=== PATIENT | male | born 1970 | race Caucasian/White ===

== ENCOUNTER → 2017-12-12 09:17 | Outpatient (CLI) | payer BC, SELFPAY ==
--- NOTE | 2017-12-12 09:21 | RAD_ITS ---
STUDY: X-RAY CHEST REASON FOR EXAM: Male, 47 years old. Cough. TECHNIQUE: Frontal and lateral views of the chest. COMPARISON: None. FINDINGS: The lungs are clear and expanded. There is no demonstrated pleural abnormality. Normal size heart. Normal mediastinum and wali. Normal visualized pulmonary arteries. Normal visualized aortic arch and descending thoracic aorta. Normal visualized thoracic spine. Normal visualized ribs, clavicles, and shoulders. There is no demonstrated abnormality of the visualized soft tissue structures of the upper abdomen. RAD/Chest PA and Lateral IMPRESSION: Normal x-ray examination of the chest. Electronically Signed: Nicolas Chen MD at 16:49 EDT , Service support ,
== END ==
PROVIDERS: Family Provider Family Medicine; PCP Family Medicine; Visit Provider Internal Medicine Critical Care Medicine
DX: J45.21 Mild intermittent asthma with (acute) exacerbation (principal)
CPT/HCPCS: 71046

== ENCOUNTER → 2018-01-22 13:21 | Outpatient (CLI) | payer BC, SELFPAY ==
--- NOTE | 2018-01-23 08:40 | PFT ---
INTRODUCTION: The patient is a 47-year-old male currently under the care of Dr. Blair that presents for pulmonary function testing secondary to a diagnosis of asthma. Respiratory therapy reports good patient effort. Bronchodilators were used during testing. INTERPRETATION: Forced expiration spirometry demonstrates the presence of a mild large airways obstructive ventilatory impairment. There was a near significant response to aerosolized bronchodilators. Spirograms are of good quality do not plateau indicating slow emptying of the lungs. Body plethysmography was performed and reveals lung volumes to be within normal limits. Diffusing capacity by single breath CO is also within normal limits. IMPRESSION: These pulmonary function studies demonstrate the presence of a mild large airways obstructive ventilatory defect. Although the bronchodilator response was not considered significant by ATS criteria, the airway obstruction did reverse with bronchodilator administration. There are no previous pulmonary function studies available for comparison.
== END ==
PROVIDERS: Family Provider Family Medicine; PCP Family Medicine; Visit Provider Internal Medicine Critical Care Medicine
DX: J45.21 Mild intermittent asthma with (acute) exacerbation (principal)
CPT/HCPCS: 94060; 94726; 94729

== ENCOUNTER → 2018-04-22 14:23 | Outpatient (CLI) | payer BC, SELFPAY ==
[2018-04-22 15:59] LABS: Absolute Lymphocyte Count 2.41 X10^3/ul (0.83-4.51); Absolute Neutrophil Count 5.6 X10^3/uL (2.0-7.7); Basophil# 0.03 X10^3/uL; Basophil% 0.3 % (0-1); Eosinophil# 0.07 X10^3/uL; Eosinophils% 0.8 % (0-5); Hematocrit 42.4 % (40-54); Hemoglobin 14.2 g/dl (13.0-16.5); Lymphocyte # 2.41 X10^3/ul (4.0); Mean Corp Hgb Conc 33.5 g/gl (32-36); Mean Corpuscular Hgb 31.1 pg (27.0-32.0); Mean Corpuscular Volume 92.8 fL (80-94); Mean Platelet Vol. 9.2 fl (6.2-12.0); Monocyte# 0.78 X10^3/uL; Monocyte% 8.7 % (0-10); Neutrophil # 5.62 X10^3/uL (2.7-7.7); POSITIVE COUNT NO; POSITIVE DIFFERENTIAL NO; POSITIVE MORPHOLOGY NO; Platelet Count 275 K/mm3 (150-450); RBC Distribution Width CV 12.7 % (11.6-14.6); RBC Distribution Width SD 42.3 fl (35.1-43.9); Red Blood Count 4.57 M/mm3 (4.6-6.2); White Blood Count 8.9 K/mm3 (4.4-11.0)
[2018-04-22 16:17] LABS: ALB/GLOB Ratio 1.2 RATIO (0.9-2.4); AST(SGOT) 34 U/L (15-37); Alanine Aminotransfer ALT/SGPT 32 U/L (16-61); Alkaline Phosphatase 57 U/L (45-117); Anion Gap 8 (5-15); BUN 14 mg/dL (7-18); Chloride 104 mmol/L (98-107); Cholesterol 179 mg/dL (200); Creatinine, Serum 1.17 mg/dL (0.70-1.30); EST Glomerular Filtration Rate 71 mL/min (>60); Est Glom Filt Rate - Afr Amer 86 mL/min (>60); Globulin 3.4 g/dL (2.2-4.2); Glucose 88 mg/dL (74-106); High Density Lipoprotein 34 mg/dL; Potassium 3.8 mmol/L (3.5-5.1); Protein, Total 7.4 g/dL (6.4-8.2); Sodium Level 140 mmol/L (136-145); Triglycerides 132 mg/dL; Very Low Density Lipoprotein 26 mg/dL (5-40)
== END ==
PROVIDERS: Family Provider Family Medicine; PCP Family Medicine; Visit Provider Family Medicine
DX: Z00.01 Encounter for general adult medical examination with abnormal findings (principal); I10 Essential (primary) hypertension; E78.5 Hyperlipidemia, unspecified
CPT/HCPCS: 36415; 80053; 80061; 85025

== ENCOUNTER → 2018-05-08 11:21 | Outpatient (CLI) | payer BC, SELFPAY | PROVIDERS: Family Provider Family Medicine; PCP Family Medicine; Visit Provider Nurse Practitioner Acute Care | DX: J20.9 Acute bronchitis, unspecified (principal) | CPT/HCPCS: 71046; 87070; 87077; 87205 ==

== ENCOUNTER → 2019-04-21 06:00 | Outpatient (CLI) | payer BC, SELFPAY ==
[2019-04-12 14:11] VITALS: BMI 28.6
[2019-04-21 07:27] LABS: Absolute Lymphocyte Count 2.37 X10^3/uL (0.83-4.51); Absolute Neutrophil Count 3.9 X10^3/uL (2.0-7.7); Basophil# 0.05 X10^3/uL; Basophil% 0.7 % (0-1); Eosinophil# 0.08 X10^3/uL; Eosinophils% 1.1 % (0-5); Hematocrit 44.3 % (40-54); Hemoglobin 14.6 g/dL (13.0-16.5); Lymphocyte # 2.37 X10^3/ul (4.0); Lymphocyte % 32.6 % (19-41); Mean Corpuscular Hgb 30.9 pg (27.0-32.0); Mean Corpuscular Volume 93.9 fL (80-94); Mean Platelet Vol. 8.8 fl (6.2-12.0); Monocyte# 0.88 X10^3/uL; Monocyte% 12.1 % (0-10); NRBC Flagged by Analyzer 0 % (0-5); Neutrophil # 3.86 X10^3/uL (2.7-7.7); Neutrophil % 53.2 % (47-70); Platelet Count 236 K/mm3 (150-450); RBC Distribution Width CV 12.6 % (11.6-14.6); RBC Distribution Width SD 43.8 fl (35.1-43.9); Red Blood Count 4.72 M/mm3 (4.6-6.2); White Blood Count 7.3 K/mm3 (4.4-11.0)
[2019-04-21 08:01] LABS: ALB/GLOB Ratio 1.1 RATIO (0.9-2.4); AST(SGOT) 27 U/L (15-37); Alanine Aminotransfer ALT/SGPT 30 U/L (16-61); Albumin, Serum 3.6 g/dL (3.2-5.0); Alkaline Phosphatase 66 U/L (45-117); Anion Gap 7 (5-15); BUN 14 mg/dL (7-18); BUN/Creat Ratio 11.5 RATIO (10-20); Calcium,Total 8.7 mg/dL (8.5-10.1); Chloride 106 mmol/L (98-107); Cholesterol 183 mg/dL (200); Creatinine, Serum 1.22 mg/dL (0.70-1.30); EST Glomerular Filtration Rate 68 mL/min (>60); Est Glom Filt Rate - Afr Amer 82 mL/min (>60); Globulin 3.4 g/dL (2.2-4.2); Glucose 94 mg/dL (74-106); High Density Lipoprotein 31 mg/dL; Sodium Level 139 mmol/L (136-145); Triglycerides 287 mg/dL; Very Low Density Lipoprotein 57 mg/dL (5-40)
== END ==
PROVIDERS: Family Provider Family Medicine; PCP Family Medicine; Referring Provider Family Medicine; Visit Provider Family Medicine
DX: Z00.01 Encounter for general adult medical examination with abnormal findings (principal); I10 Essential (primary) hypertension; E78.5 Hyperlipidemia, unspecified
CPT/HCPCS: 36415; 80053; 80061; 85025

== ENCOUNTER → 2019-05-12 13:03 | Outpatient (CLI) | payer BC, SELFPAY ==
[2019-04-12 14:11] VITALS: BMI 28.6
== END ==
PROVIDERS: Family Provider Family Medicine; PCP Family Medicine; Referring Provider Family Medicine; Visit Provider Family Medicine
DX: G47.19 Other hypersomnia (principal)
CPT/HCPCS: 95806

== ENCOUNTER 2020-01-26 15:16 | Emergency (ER) | payer BC, SELFPAY ==
[2019-10-04 14:13] VITALS: BMI 28.6
[2020-01-26 15:17] VITALS: BP 182/94; PULSE 84; RESP 16; TEMP 36.6; O2SAT 99; BMI 29.1
--- NOTE | 2020-01-26 15:27 | VDLE_ITS ---
Reason For Study: SWELLING Procedure LEFT Exam performed portable in ED. GSV is normal. A preliminary report was called and/or faxed CFV is compressible, spontaneous, phasic, to ED. competent, and demonstrates normal augmentation. FV is compressible, spontaneous, phasic, competent and demonstrates normal augmentation. POP V is compressible, spontaneous, phasic, competent and demonstrates normal augmentation. T/P Trunk is compressible. PTV is compressible. LT PerV is compressible. Interpretation Summary Deep veins of the left lower extremity are patent and compressible segmentally. There is no evidence of left lower extremity deep vein thrombosis. Valvular competence appears intact within the proximal deep venous system on the left . The left great saphenous vein appears patent and compressible segmentally. Ordering Physician: Sanjay Potts Referring Physician: MOLLY MCCULLOUGH Performed By: Rivka Landis, TARA, RVT
--- NOTE | 2020-01-26 15:28 | ED.DCSUM_ITS ---
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 He had no swelling or significant pain for about 2 weeks. Then, he started having swelling in the lower leg, and the popliteal fossa. Now that has been going on for about 2 weeks. He is concerned he may have a blood clot. He has never had one before, he has not been immobilized, he has been getting around and walking without any difficulty, he states bending his knee gives him discomfort in the popliteal fossa because of the amount of swelling there, but otherwise he has been doing well. Denies any symptoms of a PE. No chest pain, shortness of breath, lightheadedness, palpitations, and none of this with exertion. He states he bicycles avidly, and he has been doing strong workouts without any difficulty. - Past Medical History (1) Hypertension Status: Chronic (2) Hyperlipidemia Status: Chronic (3) Mild intermittent asthma Status: Chronic Past Medical History - Allergies and Home Meds Allergies/Adverse Reactions: Allergies No Known Allergies Allergy (Verified 01/26/20 15:19) Primary Care Physician: Adrian Dobbs DO [Primary Care Provider] - Lives: With Family Smoking Status: Never smoker Review of Systems General: Denies: Chills, Fever, Sweats Eyes: Denies: Visual changes - bilaterally, Diplopia ENT: Denies: Rhinorrhea, Sore throat Cardiovascular: Denies: Chest pain, Palpitations Respiratory: Denies: Dyspnea, Cough, Dyspnea on exertion Gastrointestinal: Denies: Abdominal pain, Nausea, Vomiting, Diarrhea, Melena, Hematochezia Genitourinary: Denies: Dysuria, Hematuria, Frequency Musculoskeletal: Reports: Swelling, Extremity Pain - tight, mostly popliteal fossa. Denies: Back pain Skin: Denies: Rash, Wounds Neurological: Denies: Headache, Weakness, Numbness Physical Exam Vital Signs/Narrative: Vital Signs Temp Pulse Resp BP Pulse Ox 01/26/20 15:17 97.8 F 84 16 182/94 H 99 Inital Vital Signs reviewed: Yes - Extremity Exam Left Knee: Edema - Trace-1+ pretibial left lower extremity only, to the knee. No pitting edema in the thigh., Limited ROM - Only at extremes of flexion., - - Popliteal fossa is swollen, it is not tender, it is soft to palpation, there is no skin abnormalities or cellulitis or nidus for infection. No knee effusion anteriorly. All ligaments stable and intact with no pain on stressing. General: Well nourished, Well developed, - - nad Head: Normocephalic, Atraumatic Eyes: Perrl, EOMI Skin: Normal color, No rash, No Trauma Neurological: Alert, Oriented x3, Cranial nerves II-XII grossly intact, Normal Strength, Normal Sensation, Normal Gait Psychological: Normal affect, Normal Mood Diagnostic/Tx/Re-eval - Medical Decision Making Vascular venous Doppler was obtained in the emergency department, it shows no sign of venous thrombolic disease. They did not note Junior's cyst either. Hopefully this was just an unusual presentation of a traumatic injury with residual draining subcutaneous blood as a result. This should all resolve with time if that is the case. There is not a lot of bruising to suggest that is obviously the cause. He does not require any anticoagulants or surgical evalu ation at this time so I think it is appropriate that he follow-up with his primary care doctor for now. He is comfortable with that plan. ED Disposition - Plan for ED Patient: Disposition: Home or Assisted Living Diagnosis: Edema of left lower extremity Instructions: ED Peripheral Edema, Unilateral Referrals: Adiran Dobbs DO [Primary Care Provider] - 1 Week if not improving
[2020-01-26 17:35] VITALS: BP 167/81; PULSE 81; RESP 14; O2SAT 97
== END 2020-01-26 17:36 | disposition home or self-care (01) ==
PROVIDERS: Emergency Provider Emergency Medicine; PCP Family Medicine
DX: R60.0 Localized edema (principal); I10 Essential (primary) hypertension; E78.5 Hyperlipidemia, unspecified; J45.20 Mild intermittent asthma, uncomplicated; Z79.51 Long term (current) use of inhaled steroids; Z79.899 Other long term (current) drug therapy
CPT/HCPCS: 93971; 99282

== ENCOUNTER → 2020-04-24 15:47 | Outpatient (CLI) | payer BC, SELFPAY ==
[2020-03-29 13:51] VITALS: BMI 29.1
[2020-04-24 17:07] LABS: Absolute Lymphocyte Count 2.83 X10^3/uL (0.83-4.51); Absolute Neutrophil Count 5.4 X10^3/uL (2.0-7.7); Basophil# 0.03 X10^3/uL; Basophil% 0.3 % (0-1); Eosinophil# 0.06 X10^3/uL; Eosinophils% 0.6 % (0-5); Hematocrit 44.5 % (40-54); Hemoglobin 14.6 g/dL (13.0-16.5); Lymphocyte # 2.83 X10^3/ul (4.0); Lymphocyte % 30.5 % (19-41); Mean Corp Hgb Conc 32.8 g/dL (32-36); Mean Corpuscular Hgb 30.2 pg (27.0-32.0); Mean Corpuscular Volume 92.1 fL (80-94); Mean Platelet Vol. 8.7 fl (6.2-12.0); Monocyte# 0.96 X10^3/uL; Monocyte% 10.3 % (0-10); NRBC Flagged by Analyzer 0 % (0-5); Neutrophil # 5.37 X10^3/uL (2.7-7.7); Neutrophil % 57.9 % (47-70); Platelet Count 290 K/mm3 (150-450); RBC Distribution Width CV 13.1 % (11.6-14.6); RBC Distribution Width SD 43.7 fl (35.1-43.9); Red Blood Count 4.83 M/mm3 (4.6-6.2); White Blood Count 9.3 K/mm3 (4.4-11.0)
[2020-04-24 17:20] LABS: ALB/GLOB Ratio 1.2 RATIO (0.9-2.4); AST(SGOT) 25 U/L (15-37); Alanine Aminotransfer ALT/SGPT 39 U/L (16-61); Albumin, Serum 4.2 g/dL (3.2-5.0); Alkaline Phosphatase 69 U/L (45-117); Anion Gap 7 (5-15); BUN 16 mg/dL (7-18); BUN/Creat Ratio 12.2 RATIO (10-20); Chloride 102 mmol/L (98-107); Cholesterol 220 mg/dL (200); Creatinine, Serum 1.31 mg/dL (0.70-1.30); EST Glomerular Filtration Rate 62 mL/min (>60); Est Glom Filt Rate - Afr Amer 75 mL/min (>60); Globulin 3.6 g/dL (2.2-4.2); Glucose 83 mg/dL (74-106); High Density Lipoprotein 32 mg/dL; Potassium 3.9 mmol/L (3.5-5.1); Protein, Total 7.8 g/dL (6.4-8.2); Sodium Level 137 mmol/L (136-145); Triglycerides 288 mg/dL; Very Low Density Lipoprotein 58 mg/dL (5-40)
== END ==
PROVIDERS: PCP Family Medicine; Visit Provider Family Medicine
DX: Z00.00 Encounter for general adult medical examination without abnormal findings (principal)
CPT/HCPCS: 36415; 80053; 80061; 85025

== ENCOUNTER → 2022-08-23 | Outpatient (CLI) | payer OTHER, SELFPAY ==
[2022-08-23 18:19] LABS: ALB/GLOB Ratio 1.2 RATIO (0.9-2.4); AST(SGOT) 19 U/L (15-37); Alanine Aminotransfer ALT/SGPT 30 U/L (16-61); Albumin, Serum 4.2 g/dL (3.2-5.0); Alkaline Phosphatase 68 U/L (45-117); Anion Gap 7 (5-15); BUN 17 mg/dL (7-18); BUN/Creat Ratio 13.9 RATIO (10-20); Calcium,Total 9.1 mg/dL (8.5-10.1); Chloride 105 mmol/L (98-107); Creatinine, Serum 1.22 mg/dL (0.70-1.30); EST Glomerular Filtration Rate 67 mL/min (>60); Est Glom Filt Rate - Afr Amer 81 mL/min (>60); Globulin 3.5 g/dL (2.2-4.2); Glucose 96 mg/dL (74-106); PSA,Total - Annual Screen 1.43 ng/mL (0.00-4.00); Protein, Total 7.7 g/dL (6.4-8.2); Sodium Level 138 mmol/L (136-145)
== END | disposition home or self-care (01) ==
PROVIDERS: PCP Family Medicine; Visit Provider Family Medicine
DX: Z00.00 Encounter for general adult medical examination without abnormal findings (principal); Z12.5 Encounter for screening for malignant neoplasm of prostate
CPT/HCPCS: 36415; 80053; 84153; G0103

== ENCOUNTER 2023-12-08 10:08 | Emergency (ER) | payer OTHER, SELFPAY ==
[2023-12-08 10:09] VITALS: BP 150/88; PULSE 82; RESP 16; TEMP 36.7; O2SAT 99; BMI 30.2
--- NOTE | 2023-12-08 10:31 | EX.ED.DYSGE1 ---
HPI History of Present Illness Chief Complaint: Abd Pain Informant: patient Narrative Narrative: 53-year-old male was at work today when he sustained an injury to the right inguinal region. Patient states he went to flip a part he was working on over and the table began to fall forward and he grabbed a piece and pulled it back up. States in doing so he felt pain in the right inguinal region. He notes continued discomfort and when he sits down feels a bulge. He has not had hernia before. He notes a history of hypertension and hyperlipidemia. [facility] Medical History Arthritis Asthma Fatigue Hemorrhoids HLD (hyperlipidemia) Hypertension Shortness of breath Shoulder pain Home Medications fluticasone furoate 200 mcg-vilanterol 25 mcg/dose inhalation powder (Breo Ellipta) 1 inh inhalation QDAY #60 ea 09/27/21 [Rx Last Taken Unknown] amlodipine 5 mg-benazepril 40 mg capsule 1 cap PO DAILY 09/24/22 [History Last Taken Unknown] fluticasone propionate 50 mcg/actuation nasal spray,suspension 2 spray intranasal DAILY #18.2 mL 10/16/22 [Rx Last Taken Unknown] prednisone 10 mg tablet 10 mg PO QDAY #30 tabs 10/13/23 [Rx Last Taken Unknown] ezetimibe 10 mg tablet 10 mg PO DAILY 10/23/23 [History Last Taken Unknown] hydrochlorothiazide 25 mg tablet 25 mg PO DAILY 10/23/23 [History Last Taken Unknown] Allergy/AdvReac Type Severity Reaction Status Date / Time No Known Allergies Allergy Verified 12/08/23 10:11 Family History Grandfather Emphysema lung Grandmother Emphysema lung Mother Cancer uterine cancer Diabetes Heart disease CVA (cerebral vascular accident) Surgical History ankle surgery H/O knee surgery History of placement of ear tubes Social History household members: none housing: house current occupational status: employed current occupation: [employer], [employer] [place] pets and animals: Yes (5 steers) 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 animals: farm animals Smoking Status: Never smoker Smokeless tobacco user: chewing tobacco and snus second hand exposure: No alcohol intake: current alcohol intake frequency: holidays/special occasions only Alcohol type: beer substance use type: does not use ROS ROS ED Constitutional Constitutional ED: Denies chills or weight loss Eyes Eyes: Denies change in vision or diplopia ENT ENT ED: Denies ear pain, rhinorrhea or sore throat Cardiovascular Cardiovascular: Denies chest pain, orthopnea, palpitations or racing heartbeat Respiratory/Chest Respiratory/Chest: Denies cough, dyspnea or orthopnea Gastrointestinal Gastrointestinal: Reports other Details: See history of present illness ; Denies abdominal pain, diarrhea, nausea or vomiting Genitourinary Genitourinary ED: Denies dysuria, hematuria or urinary frequency Musculoskeletal Musculoskeletal: Denies arthralgias or myalgias Integumentary Denies abscess or rash Neurologic Neurologic: Denies headache(s) or weakness Psychiatric Psychiatric: Denies anxiety, depression, suicidal ideation or suicidal thoughts Endocrine Endocrinology: Denies polydipsia, polyphagia or polyuria Allergic/Immunologic Allergic/Immunologic ED: Denies mouth swelling, tongue swelling or urticaria EXAM Physical Exam Const Vital Signs: 12/08/23 10:09 Temperature 98.1 F Temperature Source Temporal Pulse Rate 82 Respiratory Rate 16 Blood Pressure 150/88 H Blood Pressure Mean 108 Pulse Ox 99 Oxygen Delivery Method Room Air Positive well nourished and well developed General Appearance ED: well developed HEENT Reports normocephalic, head/scalp atraumatic and moist mucous membranes Eyes PERRL and EOMs intact bilaterally Neck no lymphadenopathy, supple and no JVD Resp normal respiratory effort and clear to auscultation bilaterally Cardio regular rate, regular rhythm and no murmurs GI normal to inspection, nondistended, normoactive bowel sounds and non-tender Palpation: soft Narrative: I do not palpate a hernia with standing or with sitting. With Valsalva movement I do not appreciate a sliding hernia. He has tenderness at the inguinal ring. Testicular exam shows normal lie normal cremasteric reflex and the testicles to be nontender. I do not appreciate any ecchymosis. Back/Spine no CVA tenderness and normal ROM Extremity normal to inspection General Extremety ED: Negative for edema General Extremity: Negative for edema Neuro oriented x3 and CN's II-XII intact bilaterally Sensorium / Orientation: alert Motor Exam: strength 5/5 throughout Psych mental status grossly normal Mood & Affect: Negative for depressed or tearful Skin no rashes or lesions noted and no wounds MDM MDM MDM Narrative Medical decision making narrative: Differential diagnosis includes but not limited to abdominal wall hematoma, abdominal wall strain, direct indirect hernias, inguinal strain, testicular injuries. At this point I am not seeing evidence of incarcerated or obvious hernia. I will classify this as an inguinal strain. I advised him he should follow-up with Workmen's Comp. and I will also refer him to general surgery. We talked about icing and anti-inflammatories. I will place him on lifting restrictions at work. He was given return instructions particularly if he notices a hernia/bulge. History & Record Review Discussion w/independent historian: Patient Discharge Plan Triage Chief Complaint: Abd Pain ED Provider: Andrzej White Dx/Rx/DC Orders Clinical Impression: Strain of right inguinal region Instructions: ED Groin Strain Prescriptions: No Action Breo Ellipta 200-25 mcg/dose blister with device 1 inh INHALATION QDAY Qty: 60 11RF Rx Instructions: after inhalation, rinse mouth with water and spit out; do not swallow amlodipine-benazepril 5-40 mg capsule 1 cap PO DAILY hydrochlorothiazide 25 mg tablet 25 mg PO DAILY Patient Comments: TAKE 1 TABLET BY MOUTH EVERY DAY ezetimibe 10 mg tablet 10 mg PO DAILY Patient Comments: TAKE 1 TABLET BY MOUTH EVERY DAY fluticasone propionate 50 mcg/actuation spray,suspension 2 spray intranasal DAILY Qty: 18.2 11RF Rx Instructions: administer into each nostril prednisone 10 mg tablet 10 mg PO QDAY Qty: 30 0RF Rx Instructions: take 4 tabs for three days, then 3 tabs for three days, then 2 tabs for three days, then 1 tab for 3 days Primary Care Provider: Adrian Dobbs Referrals: Shon Leon MD [Med Staff - Active Staff] - As soon as possible (for general surgery evaluation ) Adrian Dobbs, [Primary Care Provider] - [facility] [Non-Staff] - As soon as possible Disposition Disposition: Home, Self Care
[2023-12-08 10:46] VITALS: BP 142/56; PULSE 87; RESP 16; TEMP 36.4; O2SAT 100
== END 2023-12-08 10:51 | disposition home or self-care (01) ==
LOC: ED 10:47
PROVIDERS: Emergency Provider Emergency Medicine; PCP Family Medicine; Visit Provider Emergency Medicine
DX: S76.811A Strain of other specified muscles, fascia and tendons at thigh level, right thigh, initial encounter (principal); X58.XXXA Exposure to other specified factors, initial encounter; I10 Essential (primary) hypertension; E78.5 Hyperlipidemia, unspecified; Z79.899 Other long term (current) drug therapy; F17.220 Nicotine dependence, chewing tobacco, uncomplicated
CPT/HCPCS: 99282

== ENCOUNTER → 2024-01-06 | Outpatient (CLI) | payer OTHER, SELFPAY ==
[2024-01-06 17:41] LABS: Absolute Lymphocyte Count 2.77 X10^3/uL (0.83-4.51); Absolute Neutrophil Count 6.5 X10^3/uL (2.0-7.7); Basophil# 0.06 X10^3/uL; Basophil% 0.6 % (0-1); Eosinophil# 0.18 X10^3/uL; Eosinophils% 1.7 % (0-5); Hematocrit 41.8 % (40-54); Hemoglobin 14.1 g/dL (13.0-16.5); Lymphocyte # 2.77 X10^3/ul (0.83-4.51); Lymphocyte % 26.4 % (19-41); Mean Corp Hgb Conc 33.7 g/dL (32-36); Mean Corpuscular Hgb 30.8 pg (27.0-32.0); Mean Corpuscular Volume 91.3 fL (80-94); Mean Platelet Vol. 8.8 fl (6.2-12.0); Monocyte# 0.95 X10^3/uL; Monocyte% 9.1 % (0-10); NRBC Flagged by Analyzer 0 % (0-5); Neutrophil # 6.49 X10^3/uL (2.7-7.7); Neutrophil % 61.9 % (47-70); Platelet Count 328 K/mm3 (150-450); RBC Distribution Width CV 12.3 % (11.6-14.6); RBC Distribution Width SD 40.5 fl (35.1-43.9); Red Blood Count 4.58 M/mm3 (4.6-6.2); White Blood Count 10.5 K/mm3 (4.4-11.0)
[2024-01-06 19:03] LABS: ALB/GLOB Ratio 1.2 RATIO (0.9-2.4); AST(SGOT) 19 U/L (15-37); Alanine Aminotransfer ALT/SGPT 29 U/L (16-61); Alkaline Phosphatase 67 U/L (45-117); Anion Gap 8 (5-15); BUN 17 mg/dL (7-18); BUN/Creat Ratio 15.2 RATIO (10-20); Calcium,Total 9.3 mg/dL (8.5-10.1); Chloride 103 mmol/L (98-107); Cholesterol 197 mg/dL (200); Creatinine, Serum 1.12 mg/dL (0.70-1.30); EST Glomerular Filtration Rate 73 mL/min (>60); Est Glom Filt Rate - Afr Amer 89 mL/min (>60); Globulin 3.4 g/dL (2.2-4.2); Glucose 93 mg/dL (74-106); High Density Lipoprotein 30 mg/dL; Potassium 3.4 mmol/L (3.5-5.1); Protein, Total 7.4 g/dL (6.4-8.2); Sodium Level 138 mmol/L (136-145); Triglycerides 364 mg/dL; Very Low Density Lipoprotein 73 mg/dL (5-40)
[2024-01-06 19:49] LABS: Hemoglobin A1c 5.5 % (3.8-5.6)
[2024-01-10 01:07] LABS: Lead, Blood Adult 16+yrs 5.1 ug/dL (0.0-3.4); Lyme IgG P18 Ab Absent (.); Lyme IgG P23 Ab Absent (.); Lyme IgG P28 Ab Absent (.); Lyme IgG P30 Ab Absent (.); Lyme IgG P39 Ab Absent (.); Lyme IgG P41 Ab Present (.); Lyme IgG P45 Ab Absent (.); Lyme IgG P58 Ab Absent (.); Lyme IgG P66 Ab Absent (.); Lyme IgG P93 Ab Absent (.); Lyme IgG WB Interpretation Negative (.); Lyme IgM P23 Ab Absent (.); Lyme IgM P39 Ab Absent (.); Lyme IgM P41 Ab Absent (.); Lyme IgM WB Interpretation Negative (.)
== END | disposition home or self-care (01) ==
LOC: BFHLAB 15:59
PROVIDERS: PCP Family Medicine; Visit Provider Family Medicine
DX: Z00.00 Encounter for general adult medical examination without abnormal findings (principal); Z12.5 Encounter for screening for malignant neoplasm of prostate; M13.0 Polyarthritis, unspecified; Z77.011 Contact with and (suspected) exposure to lead
CPT/HCPCS: 36415; 80053; 80061; 83036; 83655; 84153; 85025; 86617; G0103

== ENCOUNTER → 2024-01-27 | Outpatient (CLI) | payer OTHER, SELFPAY ==
--- NOTE | 2024-01-27 06:36 | CT_ITS ---
STUDY: CT ABDOMEN AND PELVIS WITH CONTRAST REASON FOR EXAM: Male, 53 years old. R INGUINAL MASS, TENDER POSSIBLE HERNIA RADIATION DOSAGE (If Supplied By Facility): CTDIvol = ( 16.56 ) mGy, DLP = ( 1306.45 ) mGycm TECHNIQUE: Oral and amp; IV Readi-CAT and amp; 100mL Isovue-300 was administered. Transaxial images were obtained from the dome of the diaphragm to the symphysis pubis. Multiplanar coronal and sagittal images were reformatted. Individualized Dose Optimization Techniques Were Used For This CT. COMPARISON: No relevant prior comparison study available FINDINGS: The visualized lung bases are unremarkable. The visualized portions of the heart are within normal limits. Normal liver. Normal gallbladder and extrahepatic biliary system. Normal spleen. Normal pancreas. Normal bilateral adrenal glands. Normal visualized stomach. Normal in caliber small bowel loops. Fecal retention. No evidence of acute diverticulitis. The appendix is visualized and appears normal. Normal abdominal aorta. No retroperitoneal adenopathy. Normal right kidney. Mild prominence of the left renal pelvis and left ureter without evidence of distal ureteral stone. Normal urinary bladder. Slightly prominent prostate. Very small right inguinal hernia containing fat. Multilevel degenerative changes of the spine. Minimal retrolisthesis of L4 over L5. Mild depression of the superior endplate of T12. CT/Abdomen/Pelvis WITH Contrast IMPRESSION: 1. Very small right inguinal hernia containing fat. 2. No focal acute inflammatory process. Electronically Signed: Jose Manuel Norman MD at 9:00 EDT ,
== END | disposition home or self-care (01) ==
LOC: CT 06:33
PROVIDERS: PCP Family Medicine; Referring Provider Family Medicine; Visit Provider Family Medicine
DX: R19.09 Other intra-abdominal and pelvic swelling, mass and lump (principal)
CPT/HCPCS: 74177; Q9967

== ENCOUNTER → 2025-01-10 | Outpatient (CLI) | payer BC, SELFPAY ==
[2025-01-10 18:06] LABS: Absolute Lymphocyte Count 2.63 X10^3/uL (0.83-4.51); Absolute Neutrophil Count 6.6 X10^3/uL (2.0-7.7); Basophil# 0.06 X10^3/uL; Basophil% 0.6 % (0-1); Eosinophil# 0.41 X10^3/uL; Eosinophils% 3.8 % (0-5); Hematocrit 43.2 % (40-54); Hemoglobin 14.3 g/dL (13.0-16.5); Lymphocyte # 2.63 X10^3/ul (0.83-4.51); Lymphocyte % 24.6 % (19-41); Mean Corp Hgb Conc 33.1 g/dL (32-36); Mean Corpuscular Hgb 29.5 pg (27.0-32.0); Mean Corpuscular Volume 89.3 fL (80-94); Mean Platelet Vol. 8.9 fl (6.2-12.0); Monocyte# 1.01 X10^3/uL; Monocyte% 9.4 % (0-10); NRBC Flagged by Analyzer 0 % (0-5); Neutrophil # 6.56 X10^3/uL (2.7-7.7); Neutrophil % 61.3 % (47-70); Platelet Count 349 K/mm3 (150-450); RBC Distribution Width CV 12.5 % (11.6-14.6); RBC Distribution Width SD 40.9 fl (35.1-43.9); Red Blood Count 4.84 M/mm3 (4.6-6.2); White Blood Count 10.7 K/mm3 (4.4-11.0)
[2025-01-10 19:33] LABS: ALB/GLOB Ratio 1.7 RATIO (0.9-2.4); AST(SGOT) 20 U/L (<=37); Alanine Aminotransfer ALT/SGPT 19 U/L (<=46); Albumin, Serum 4.7 g/dL (3.5-5.0); Alkaline Phosphatase 81 U/L (40-129); Anion Gap 15 (5-15); BUN 18 mg/dL (4-19); BUN/Creat Ratio 15.9 RATIO (10-20); Calcium,Total 9.9 mg/dL (7.6-11.0); Chloride 98 mmol/L (98-108); Cholesterol 188 mg/dL (<=200); Creatinine, Serum 1.12 mg/dL (0.70-1.20); EST Glomerular Filtration Rate 79 (>60); Globulin 2.8 g/dL (2.2-4.2); Glucose 92 mg/dL (70-99); High Density Lipoprotein 35 mg/dL; Low Density Lipoprotein Calc. 125 mg/dL; PSA,Total - Annual Screen 1.31 ng/mL (0.02-4.00); Potassium 3.5 mmol/L (3.3-5.1); Protein, Total 7.5 g/dL (5.9-8.4); Sodium Level 137 mmol/L (133-145); Total Bilirubin 0.44 mg/dL (0.00-1.30); Triglycerides 140 mg/dL; Very Low Density Lipoprotein 28 mg/dL (5-40); cholesterol:hdl ratio screen 5.36
[2025-01-12 15:08] LABS: Lead, Blood Adult 16+yrs 5.5 ug/dL (0.0-3.4)
== END | disposition home or self-care (01) ==
LOC: BFHLAB 16:22
PROVIDERS: PCP Family Medicine; Visit Provider Family Medicine
DX: Z00.00 Encounter for general adult medical examination without abnormal findings (principal); Z12.5 Encounter for screening for malignant neoplasm of prostate; R78.71 Abnormal lead level in blood; M13.0 Polyarthritis, unspecified; W57.XXXA Bitten or stung by nonvenomous insect and other nonvenomous arthropods, initial encounter
CPT/HCPCS: 36415; 80053; 80061; 83655; 84153; 85025; G0103

== ENCOUNTER → 2025-07-22 | Outpatient (CLI) | payer BC, SELFPAY ==
--- OUTSIDE RECORDS SUMMARY | 2025-07-22 06:07 | XMS RPT_ITS | CCD ---
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 Adrian Dobbs Primary Care Provider [phone] Dr. Adrian Dobbs Referring Provider [phone] Dr. Rafael Blair Attending Provider Toñito BAEZ, SASHA Honeycutt Attending Provider Dr. Adrian Dobbs DO Primary Care Physician [phone] Dr. Adrian Dobbs DO Referring Provider Dr. Johnny Navarro DO Attending Physician Adrian Dobbs Primary Care Unavailable Holley Smith NP Attending Unavailable Dilia, Adrian Referring Unavailable Adrian Dobbs Attending Unavailable Adrian Dobbs Primary Care Unavailable Adrian Dobbs Primary Care Unavailable Johnny Navarro Referring Unavailable Johnny Navarro Attending Unavailable Dilia, Adrian Referring Unavailable Adrian Dobbs Primary Care Unavailable Johnny Navarro Attending Unavailable Medications Current Medications Medication Drug Class(es) Dates Sig (Normalized) Sig (Original) Albuterol-Budesonide (1 source) Start: 10-27-2024 Albuterol-Budeso nide (Airsupra) 90-80 mcg/actuation HFA aerosol inhaler Active 2 NMA INHALATION THREE TIMES A DAY as needed for shortness of breath 10.7 11 October 27, 2024 1:00am as a single dose; may repeat up to 6 doses per day (12 inhalations) Complies with drug therapy amLODIPine 10 mg / benazepril hydrochloride 40 mg oral capsule (4 sources) Dihydropyridine Calcium Channel Jeffery, Angiotensin Converting Enzyme Inhibitor Start: 10-27-2024 Amlodipine-Benaz epril 10-40 mg capsule Active 1 NMA PO daily October 27, 2024 1:00am Complies with drug therapy Start: 09-24-2022 End: 10-27-2024 Amlodipine-Benazepril 5-40 m g capsule Discontinued 1 NMA PO DAILY September 24, 2022 1:00am October 27, 2024 3:48pm Start: 09-24-2022 take [address] [facility] once daily Amlodipine-Benazepril Active 1 CAP PO DAILY September 24, 2022 1:00am ezetimibe 10 mg oral tablet (3 sources) Dietary Cholesterol Absorption Inhibitor Start: 10-23-2023 take 1 tablet by mouth once daily Ezetimibe 10 mg tablet Active 10 mg PO DAILY October 23, 2023 1:00am Complies with drug therapy fluticasone propionate 0.05 mg/actuat metered dose nasal spray (7 sources) Corticosteroid Start: 09-24-2022 End: 06-23-2025 Start: 09-24-2022 End: 10-16-2022 take 1 spray(s) nasal route once daily Fluticasone Propionate Active 2 SPRAY INTRANASAL DAILY 18.2 October 16, 2022 12:13pm administer into each nostril hydroCHLOROthiazide 25 mg oral tablet (3 sources) Thiazide Diuretic Start: 10-23-2023 take 1 tablet by mouth once daily Hydrochlorothiazide 25 mg tablet Active 25 mg PO DAILY October 23, 2023 1:00am Complies with drug therapy Completed/Discontinued Medications Medication Drug Class(es) Dates Sig (Normalized) Sig (Original) [id number] actuat albuterol 0.09 mg/actuat metered dose inhaler (16 sources) beta2-Adrenergic Agonist Start: 03-29-2020 End: 09-24-2022 Albuterol Sulfate 90 mcg/actuation HFA aerosol inhaler Discontinued 2 NMA INHALATION EVERY 6 HOURS as needed for shortness of breath or wheezing 02 08September 27, 2020 3:10pm September 24, 2022 2:48pm Start: 03-29-2020 End: 09-24-2022 take 1 puff(s) by inhalation every six hours Albuterol Sulfate Discontinued 2 PUFF INHALATION EVERY 6 HOURS September 27, 2020 3:10pm September 24, 2022 2:48pm Start: 12-12-2017 End: 02-05-2018 Albuterol Sulfate (Ventolin Hfa) 90 mcg/actuation HFA aerosol inhaler Discontinued 2 NMA INHALATION Q4H as needed December 12, 2017 12:00am February 05, 2018 2:31pm Start: 12-12-2017 End: 02-05-2018 take 1 puff(s) by inhalation every four hours Albuterol Sulfate (Ventolin Hfa) 90 mcg/actuation HFA aerosol inhaler Discontinued 2 PUFF INHALATION Q4H December 12, 2017 12:00am February 05, 2018 2:31pm Start: 12-09-2017 End: 12-12-2017 take 2 mg by mouth once Albuterol Sulfate 2 mg/5 mL syrup Discontinued 2 mg PO ONCE December 09, 2017 12:00am December 12, 2017 8:36am amoxicillin 875 mg / clavulanate 125 mg oral tablet (8 sources) Penicillin-class Antibacterial Start: 09-27-2021 End: 09-24-2022 Amoxicillin-Pot Clavulanate 875-125 mg tablet Discontinued 1 {tbl} PO TWICE A DAY September 27, 2021 1:00am September 24, 2022 2:48pm Start: 09-27-2021 End: 09-24-2022 take 1 tablet by mouth twice daily Amoxicillin-Pot Clavulanate Discontinued 1 TABLET PO TWICE A DAY September 27, 2021 1:00am September 24, 2022 2:48pm Start: 05-08-2018 End: 08-05-2018 Amoxicillin-Pot Clavulanate (Augmentin) 875-125 mg tablet Discontinued 1 {tbl} PO TWICE A DAY May 08, 2018 12:00am August 05, 2018 3:16pm azithromycin 250 mg oral tablet (4 sources) Macrolide Antimicrobial Start: 12-09-2017 End: 12-14-2017 Azithromycin 250 mg tablet Discontinued 250 mg PO daily 6 5 0 December 09, 2017 12:00am December 13, 2017 12:00am December 14, 2017 12:08am Acute bronchitis, unspecified Unspecified asthma with (acute) exacerbation Take 2 tabs once on day one then take one tablet once daily for the next 4 days. benazepril hydrochloride 20 mg oral tablet (8 sources) Angiotensin Converting Enzyme Inhibitor Start: 06-01-2021 End: 09-24-2022 take 2 tablets by mouth once daily Benazepril 20 mg tablet Discontinued 40 mg PO daily June 01, 2021 3:22pm September 24, 2022 2:49pm Start: 06-01-2021 End: 09-24-2022 take 40 mg by mouth once daily Benazepril Discontinued 40 MG PO daily June 01, 2021 3:22pm September 24, 2022 2:49pm Start: 12-09-2017 End: 06-01-2021 take 1 tablet by mouth once daily Benazepril 20 mg tablet Discontinued 20 mg PO daily December 09, 2017 12:00am June 01, 2021 3:25pm 120 actuat budesonide 0.16 mg/actuat / formoterol fumarate 0.0045 mg/actuat metered dose inhaler (4 sources) Corticosteroid, beta2-Adrenergic Agonist Start: 03-29-2020 End: 09-27-2020 Budesonide-Formoterol (Symbicort) 160-4.5 mcg/actuation HFA aerosol inhaler Discontinued 2 NMA INHALATION TWICE A DAY 10.2 March 29, 2020 12:00am September 27, 2020 3:10pm Start: 03-29-2020 End: 09-27-2020 take 1 puff(s) by inhalation twice daily Budesonide-Formoterol (Symbicort) 160-4.5 mcg/actuation HFA aerosol inhaler Discontinued 2 PUFF INHALATION TWICE A DAY 10.2 March 29, 2020 12:00am September 27, 2020 3:10pm doxycycline hyclate 100 mg oral tablet (3 sources) Tetracycline-class Drug Start: 09-24-2022 End: 10-23-2023 take 1 tablet by mouth twice daily Doxycycline Hyclate 100 mg tablet Discontinued 100 mg PO TWICE A DAY 20 0 September 24, 2022 1:00am October 23, 2023 3:21pm ezetimibe 10 mg / simvastatin 10 mg oral tablet (4 sources) HMG-CoA Reductase Inhibitor, Dietary Cholesterol Absorption Inhibitor Start: 06-01-2021 End: 10-23-2023 Ezetimibe-Simvast atin 10-10 mg tablet Discontinued 1 {tbl} PO DAILY June 01, 2021 12:00am October 23, 2023 3:20pm Start: 06-01-2021 End: 10-23-2023 take 1 tablet by mouth once daily Ezetimibe-Simvastatin Discontinued 1 TABLET PO DAILY June 01, 2021 12:00am October 23, 2023 3:20pm Fluticasone Propion-Salmeterol (8 sources) Corticosteroid, beta2-Adrenergic Agonist Start: 12-12-2017 End: 02-05-2018 Fluticasone Propion-Salmeterol (Advair Hfa) 230-21 mcg/actuation HFA aerosol inhaler Discontinued 2 NMA INHALATION Q12H December 12, 2017 12:00am February 05, 2018 3:23pm Start: 12-12-2017 End: 02-05-2018 take 1 puff(s) by inhalation every twelve hours Fluticasone Propion-Salmeterol (Advair Hfa) 230-21 mcg/actuation HFA aerosol inhaler Discontinued 2 PUFF INHALATION Q12H December 12, 2017 12:00am February 05, 2018 3:23pm Start: 12-12-2017 End: 02-05-2018 take 1 puff(s) by inhalation every twelve hours Fluticasone Propion-Salmeterol (Advair Hfa) 230-21 mcg/actuation HFA aerosol inhaler Discontinued 2 PUFF INHALATION Q12H December 11, 2017 11:00pm February 05, 2018 2:23pm Start: 12-09-2017 End: 12-12-2017 Fluticasone Propion-Salmeter ol (Advair Diskus) 100-50 mcg/dose blister with device Discontinued 1 NMA INHALATION TWICE A DAY December 09, 2017 12:00am December 12, 2017 8:36am Start: 12-09-2017 End: 12-12-2017 take 1 puff(s) by inhalation twice daily Fluticasone Propion-Salmeterol (Advair Diskus) 100-50 mcg/dose blister with device Discontinued 1 PUFF INHALATION TWICE A DAY December 09, 2017 12:00am December 12, 2017 8:36am Start: 12-09-2017 End: 12-12-2017 take 1 puff(s) by inhalation twice daily Fluticasone Propion-Salmeterol (Advair Diskus) 100-50 mcg/dose blister with device Discontinued 1 PUFF INHALATION TWICE A DAY December 08, 2017 11:00pm December 12, 2017 7:36am Fluticasone Furoate-Vilanterol (16 sources) Corticosteroid, beta2-Adrenergic Agonist Start: 09-27-2021 End: 10-27-2024 Fluticasone Furoate-Vilanterol (Breo Ellipta) 200-25 mcg/dose blister with device Discontinued 1 NMA INHALATION daily 60 September 27, 2021 4:25pm October 27, 2024 3:48pm after inhalation, rinse mouth with water and spit out; do not swallow Start: 09-27-2021 Fluticasone Fu roate-Vilanterol (Breo Ellipta) 200-25 mcg/dose blister with device Active 1 INH INHALATION daily September 27, 2021 4:25pm after inhalation, rinse mouth with water and spit out; do not swallow Start: 09-27-2021 Fluticasone Fu roate-Vilanterol (Breo Ellipta) 200-25 mcg/dose blister with device Active 1 INH INHALATION daily September 27, 2021 3:25pm after inhalation, rinse mouth with water and spit out; do not swallow Start: 09-27-2020 End: 09-27-2021 Fluticasone Furoate-Vilanter ol (Breo Ellipta) 200-25 mcg/dose blister with device Discontinued 1 NMA INHALATION daily 60 September 27, 2020 1:00am September 27, 2021 4:26pm after inhalation, rinse mouth with water and spit out; do not swallow Start: 09-27-2020 End: 09-27-2021 Fluticasone Furoate-Vilanter ol (Breo Ellipta) 200-25 mcg/dose blister with device Discontinued 1 INH INHALATION daily 60 September 27, 2020 1:00am September 27, 2021 4:26pm after inhalation, rinse mouth with water and spit out; do not swallow Start: 09-27-2020 End: 09-27-2021 Fluticasone Furoate-Vilanter ol (Breo Ellipta) 200-25 mcg/dose blister with device Discontinued 1 INH INHALATION daily September 27, 2020 12:00am September 27, 2021 3:26pm after inhalation, rinse mouth with water and spit out; do not swallow Start: 01-26-2020 End: 03-29-2020 Fluticasone Furoate-Vilanter ol 100-25 mcg/dose blister with device Discontinued 1 INHALER INHALATION DAILY January 26, 2020 12:00am March 29, 2020 2:16pm Start: 01-26-2020 End: 03-29-2020 Fluticasone Furoate-Vilanter ol Discontinued 1 INHALER INHALATION DAILY January 26, 2020 12:00am March 29, 2020 2:16pm Start: 08-05-2018 End: 07-15-2019 Fluticasone Furoate-Vilanter ol (Breo Ellipta) 100-25 mcg/dose blister with device Discontinued 1 NMA INHALATION Q24H 60 8 August 05, 2018 1:00am July 15, 2019 1:53pm Shortness of breath Mild intermittent asthma, uncomplicated after inhalation, rinse mouth with water and spit out; do not swallow Start: 08-05-2018 End: 07-15-2019 Fluticasone Furoate-Vilanter ol (Breo Ellipta) 100-25 mcg/dose blister with device Discontinued 1 INH INHALATION Q24H 60 August 05, 2018 1:00am July 15, 2019 1:53pm after inhalation, rinse mouth with water and spit out; do not swallow methylPREDNISolone 4 mg oral tablet (4 sources) Corticosteroid Start: 12-09-2017 End: 12-14-2017 take 1 tablet by mouth once Methylprednisolone (Medrol (Michel)) 4 mg tablets,dose pack Discontinued 4 mg PO per package directions 21 5 0 December 09, 2017 12:00am December 13, 2017 12:00am December 14, 2017 12:09am Unspecified asthma with (acute) exacerbation Acute bronchitis, unspecified predniSONE 10 mg oral tablet (10 sources) Start: 09-24-2022 End: 10-27-2024 Prednisone 10 mg tablet Discontinued 10 mg PO daily 30 October 13, 2023 1:00am October 27, 2024 3:48pm take 4 tabs for three days, then 3 tabs for three days, then 2 tabs for three days, then 1 tab for 3 days Start: 05-08-2018 End: 08-05-2018 take 3 tablets by mouth once daily at mealtime Prednisone 20 mg tablet Discontinued 60 mg PO daily 15 May 08, 2018 12:00am August 05, 2018 3:16pm administer with food or milk Start: 05-08-2018 End: 08-05-2018 take 60 mg by mouth once daily at mealtime Prednisone Discontinued 60 MG PO daily May 08, 2018 12:00am August 05, 2018 3:16pm administer with food or milk Problems Problem Classification Problem Date Documented Date Episodic/Chronic Acute bronchitis (4 sources) Acute bronchitis; Translations: [Acute bronchitis, unspecified] 12-09-2017 Episodic Asthma (14 sources) Exacerbation of asthma; Translations: [Unspecified asthma with (acute) exacerbation] 12-09-2017 Chronic Disorders of lipid metabolism (6 sources) Hyperlipidemia; Translations: [Hyperlipidemia, unspecified] Onset: 06-23-2025 01-26-2020 Chronic Comment on above: -Last LDL: 94- Patie nt declines statins at this time Essential hypertension (7 sources) Hypertensive disorder; Translations: [Essential (primary) hypertension] Onset: 06-23-2025 01-26-2020 Chronic Comment on above: - Currently well-con trolled in clinic today Hemorrhoids (5 sources) Hemorrhoids; Translations: [Unspecified hemorrhoids] 06-01-2021 Episodic Nonspecific chest pain (3 sources) Chest discomfort; Translations: [Other chest pain] Onset: 07-19-2025 06-23-2025 Episodic Comment on above: -Possible Cardiac Ch est Pain:- Ongoing over years, unchanged in severity and frequency, knot-like sensation lasting seconds to a minute, occurring on average 1-2 times per week both at rest and with exertion.- Etiology is unclear, possibly cardiac due to risk factors including hypertension and obesity, and with exertional component. 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 Patient notes that it is mild and confined to below the knee occurring at the end of the workday and resolved upon awakening. However, patient has risk factors for heart failure. He is also complaining of shortness of breath on exertion, necessitating cardiac evaluation. Other lower respiratory disease (2 sources) Dyspnea on exertion; Translations: [Other forms of dyspnea] 06-23-2025 Episodic Comment on above: - Etiology unclear b ut possible secondary to cardiac etiology above, pre-existing uncontrolled asthma (following with pulmonology), or deconditioning Other lower respiratory disease (1 source) Other forms of dyspnea; Translations: [Other forms of dyspnea] Onset: 07-19-2025 Episodic Other screening for suspected conditions (not mental disorders or infectious disease) (4 sources) Patient encounter status; Translations: [Encounter for screening for malignant neoplasm of colon] 06-01-2021 Episodic Other upper respiratory infections (2 sources) Acute sinusitis, unspecified; Translations: [Acute sinusitis, unspecified] 10-23-2023 Episodic Otitis media and related conditions (4 sources) Finding of fluid behind tympanic membrane; Translations: [Unspecified nonsuppurative otitis media, unspecified ear] 09-27-2021 Episodic Residual codes; unclassified (1 source) Obstructive sleep apnea syndrome; Translations: [Obstructive sleep apnea (adult) (pediatric)] 06-23-2025 Chronic Comment on above: Per patient he had 5 episodes during sleeping study. Residual codes; unclassified (1 source) Obstructive sleep apnea (adult) (pediatric); Translations: [Obstructive sleep apnea (adult) (pediatric)] Onset: 06-23-2025 Chronic Residual codes; unclassified (4 sources) Edema of left lower limb; Translations: [Localized edema] 01-27-2020 Episodic Sprains and strains (3 sources) Injury of groin; Translations: [Strain of adductor muscle, fascia and tendon of right thigh, initial encounter] 12-08-2023 Episodic Results Test Name Value Interpretation Reference Range Facility Cardiology Visit Reporton Cardiology Visit Report [facility] [address] [place] [address]. [address] [place] [address] OFFICE VISIT Date of Service: 06/23/25 MR#: [id number] Acct: [id number] Name: HUBERDANTE WADE Rep #: [id number] : 1970 Provider: Dr. Johnny alaniz, DO Age/Sex: 55/M Location: [facility] [place] Status: Signed HPI HPI History of Present Illness Details: Mr. Carson is a 55-year-old male with a documented past medical history of essential hypertension asthma (moderate persistent with history of exacerbation), hyperlipidemia, obstructive sleep apnea. Patient is presenting today for management of lower extremity edema and chest pain. His home medications are notable for amlodipine???benazep ril 10-40 mg, Zetia 10 mg daily, hydrochlorothiazide 20 mg daily. Last LDL: 94. Patient seen today with complaints of intermittent chest pain, intermittent shortness of breath, and intermittent bilateral lower extremity edema. Patient admits symptoms have been occurring over the past 2 to 3 years and have mostly been stable. He describes the chest pain as a knot like sensation". It is located on the left side of his chest and radiates to his lower ribs. It lasts from a few seconds to under a minute occurring both at rest and with activity, occurring on average 1-2 times per week. 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 He admits he has had worsening lower extremity edema over the past several months. It is bilateral, and he notices it at the end of the workday when he takes his boots off. It is then resolved upon awakening in the morning. 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 He notes that generally he is able to do his activities without any symptoms outside of the these episodes and his symptoms are not predictable. He notes he has chronic shortness of breath that has remained stable over the past few years. 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 Is patient in pain?: No Allergies No Known Allergies Allergy (Verified 06/23/25 15:04) Medications ???Medication ???Instructions ???Recorded ???Confirmed ???Type ezetimibe 10 mg tablet 10 mg PO DAILY 10/23/23 06/23/25 H istory hydrochlorothiazide 25 mg tablet 25 mg PO DAILY 10/23/23 06/23/25 H istory albuterol 90 mcg-budesonide 80 2 inh inhalation TID PRN shortness 10/27/24 06/23/25 Rx mcg/actuation HFA aerosol inhaler of breath #10.7 grams (Airsupra) amlodipine 10 mg-benazepril 40 mg 1 cap PO QDAY 10/27/24 06/23/25 H istory capsule fluticasone propionate 50 2 spray intranasal DAILY PRN 06/23 History mcg/actuation nasal spray,suspension Have you fallen in the past year?: No PFSH Medical History (Updated 06/23/25 @ 16:[address] Johnny Navarro, DO) Plantar fibromatosis Internal hemorrhoids NERI (obstructive sleep apnea) Hemorrhoids Arthritis HLD (hyperlipidemia) Asthma Fatigue Shoulder pain Shortness of breath Hypertension Surgical History History of placement of ear tubes ankle surgery H/O knee surgery Family History (Updated 06/21/25 @ 09:28 by Peg Simon) Grandfather Emphysema lung Grandmother Emphysema lung Mother Cancer uterine cancer Diabetes Heart disease CVA (cerebral vascular accident) Polymyositis Brother Hypertension Sister Hypertension Social History (Updated 06/21/25 @ 09:30 by Peg Simon) household members: none housing: house current occupational status: employed current occupation: [employer], [employer] pets and animals: Yes (5 steers) pets and animals: farm animals Smoking Status: Never smoker Smokeless tobacco user: chewing tobacco and snus second hand exposure: No alcohol intake: current alcohol intake frequency: a few times a month Alcohol type: beer substance use type: does not use caffeine: Yes Type: tea Number of servings: 2 what type of physical activity do you participate in: bicycling and other details: hiking ROS Const Const: Negative for weakness Eyes Eyes: Negative for change in vision ENT ENT: Negative for dizziness or balance problems Cardio Chest Pain: Yes (Describes as knots in his chest at times, shocks) Palpitations: No Edema: Bilateral Additional Details: See HPI Res (more content not included)... Normal [facility] [id number] 01-14-2025 [facility]. COMMENT Normal . [facility] Comment on above: Order Comment: SER/R T [id number] TICK-BORNE Result Comment: Test Ordered: [id number] Tick-borne Disease Ab Profile Test(s) [id number] microti IgG was developed and its performance characteristics determined by [facility]. It has not been cleared or approved by the Food and Drug Administration. Lyme Total Antibody CARLENE Negative Reference Range: Negative Lyme antibodies not detected. Reflex testing is not indicated. No laboratory evidence of infection with B. burgdorferi (Lyme disease). Negative results may occur in patients recently infected (less than or equal to 14 days) with B. burgdorferi. If recent infection is suspected, repeat testing on a new sample collected in 7 to 14 days is recommended. Babesia microti IgG <1:10 Reference Range: Neg:<1:10 E. chaffeensis IgG Negative Reference Range: Neg:<1:64 A. phagocytophilum IgG Negative BN Reference Range: Neg:<1:64 Result Comments: Comment BN Reference Range: . Antibody titers may be negative in the first 7-10 days of illness. A four-fold rise in IgG antibody titers for Babesia microti, Anaplasma phagocytophilum, and/or Ehrlichia chaffeensis in paired samples (acute and convalescent) supports the diagnosis of babesiosis, anaplasmosis, and/or ehrlichiosis, respectively. Performed at: [address] [id number] Career Guidance Technician: Devon Vargas PhD, Phone: [phone] Performed at: [address] [id number] Career Guidance Technician: Jadyn Townsend MD, Phone: [phone] Performed By: #### L 4722.4410, L100.0100, L3410.2292, L500.4050, L501.9910, L500.4100 #### [facility] [address] [place], [address] Lead, Blood Adult 16+yrson 0 01-12-2025 LEAD,BLD ADULT 5.5 ug/dL High 0.0-3.4 [facility] Comment on above: Order Comment: Test( s) [id number]-Meos, Blood (Adult) was developed and its performance characteristics determined by [facility]. It has not been cleared or approved by the Food and Drug Administration. 54 YEARS Result Comment: Test ing performed by Inductively coupled plasma/Mass Spectrometry. Verified by repeat analysis Analysis by inductively coupled plasma/mass spectrometry (ICP/MS) Environmental Exposure: WHO Recommendation <5.0 Occupational Exposure: OSHA Lead Std 40.0 [place] 30.0 Detection Limit = 1.0 Performed at: [facility] [employer] [id number] Career Guidance Technician: Devon Vargas PhD, Phone: [phone] Performed By: #### L 3100.6450, L100.0100, L3410.9992, L500.4050, L501.9910, L500.4100 #### [facility] [address] [place], [address] CBC W/Diff, Automatedon 04-2 Absolute Lymph 2.63 X10 3/uL Normal 0.83-4.51 [facility] Comment on above: Performed By: #### L 3100.6450, L100.0100, L3410.9992, L500.4050, L501.9910, L500.4100 #### [facility] [address] [place], [address] Absolute Neut 6.6 X10 3/uL Normal 2.0-7.7 [facility] Comment on above: Performed By: #### L 3100.6450, L100.0100, L3410.9992, L500.4050, L501.9910, L500.4100 #### [facility] [address] [place], [address] Basophils/100 WBC (Bld) 0.6 % Normal 0-1 [facility] Comment on above: Performed By: #### L 3100.6450, L100.0100, L3410.9992, L500.4050, L501.9910, L500.4100 #### [facility] [address] [place], [address] Eosinophils/100 WBC (Bld) 3.8 % Normal 0-5 [facility] Comment on above: Performed By: #### L 3100.6450, L100.0100, L3410.9992, L500.4050, L501.9910, L500.4100 #### [facility] [address] [place], [address] Erythrocyte distribution width (RBC) [Ratio] 12.5 % Normal 11.6-14.6 [facility] Comment on above: Performed By: #### L 3100.6450, L100.0100, L3410.9992, L500.4050, L501.9910, L500.4100 #### [facility] [address] [place], [address] Hematocrit (Bld) [Volume fraction] 43.2 % Normal 40-54 [facility] Comment on above: Performed By: #### L 3100.6450, L100.0100, L3410.9992, L500.4050, L501.9910, L500.4100 #### [facility] [address] [place], [address] Hemoglobin (Bld) [Mass/Vol] 14.3 g/dL Normal 13.0-16.5 [facility] Comment on above: Performed By: #### L 3100.6450, L100.0100, L3410.9992, L500.4050, L501.9910, L500.4100 #### [facility] [address] [place], [address] IG% 0.300 Normal 0.0-0.9 [facility] Comment on above: Result Comment: IG% - Immature Granulocytes (promyelocytes, myelocytes and metamyelocytes) > 1% indicates that a LEFT SHIFT is Present. Performed By: #### L 3100.6450, L100.0100, L3410.9992, L500.4050, L501.9910, L500.4100 #### [facility] [address] [place], [address] Lymphocytes/100 WBC (Bld) 24.6 % Normal 19-41 [facility] Comment on above: Performed By: #### L 3100.6450, L100.0100, L3410.9992, L500.4050, L501.9910, L500.4100 #### [facility] [address] [place], [address] MCH (RBC) [Entitic mass] 29.5 pg Normal 27.0-32.0 [facility] Comment on above: Performed By: #### L 3100.6450, L100.0100, L3410.9992, L500.4050, L501.9910, L500.4100 #### [facility] [address] [place], [address] MCHC (RBC) [Mass/Vol] 33.1 g/dL Normal 32-36 [facility] Comment on above: Performed By: #### L 3100.6450, L100.0100, L3410.9992, L500.4050, L501.9910, L500.4100 #### [facility] [address] [place], [address] MCV (RBC) [Entitic vol] 89.3 fL Normal 80-94 [facility] Comment on above: Performed By: #### L 3100.6450, L100.0100, L3410.9992, L500.4050, L501.9910, L500.4100 #### [facility] [address] [place], [address] Monocytes/100 WBC (Bld) 9.4 % Normal 0-10 [facility] Comment on above: Performed By: #### L 3100.6450, L100.0100, L3410.9992, L500.4050, L501.9910, L500.4100 #### [facility] [address] [place], [address] Neutrophils/100 WBC (Bld) 61.3 % Normal 47-70 [facility] Comment on above: Performed By: #### L 3100.6450, L100.0100, L3410.9992, L500.4050, L501.9910, L500.4100 #### [facility] [address] [place], [address] Nucleated RBC (Bld) [#/Vol] 0 10*3/uL Normal 0-5 [facility] Comment on above: Performed By: #### L 3100.6450, L100.0100, L3410.9992, L500.4050, L501.9910, L500.4100 #### [facility] [address] [place], [address] Platelet mean volume (Bld) [Entitic vol] 8.9 fL Normal 6.2-12.0 [facility] Comment on above: Performed By: #### L 3100.6450, L100.0100, L3410.9992, L500.4050, L501.9910, L500.4100 #### [facility] [address], [address] Platelets (Bld) [#/Vol] 349 10*3/uL Normal 150-450 [facility] Comment on above: Performed By: #### L 3100.6450, L100.0100, L3410.9992, L500.4050, L501.9910, L500.4100 #### [facility] [address] [place], [address] RBC (Bld) [#/Vol] 4.84 10*6/uL Normal 4.6-6.2 [facility] Comment on above: Performed By: #### L 3100.6450, L100.0100, L3410.9992, L500.4050, L501.9910, L500.4100 #### [facility] [address] [place], [address] RDW SD 40.9 fl Normal 35.1-43.9 [facility] Comment on above: Performed By: #### L 3100.6450, L100.0100, L3410.9992, L500.4050, L501.9910, L500.4100 #### [facility] [address] [place], [address] WBC (Bld) [#/Vol] 10.7 10*3/uL Normal 4.4-11.0 [facility] Comment on above: Performed By: #### L 3100.6450, L100.0100, L3410.9992, L500.4050, L501.9910, L500.4100 #### [facility] [address] [place], [address] Comprehensive Metabolic Prof [facility] 01-10-2025 Albumin [Mass/Vol] 4.7 g/dL Normal 3.5-5.0 [facility] Comment on above: Order Comment: 54 YE ARS Performed By: #### L 3100.6450, L100.0100, L3410.9992, L500.4050, L501.9910, L500.4100 #### [facility] [address] [place], [address] Albumin/Globulin [Mass ratio] 1.7 {ratio} Normal 0.9-2.4 [facility] Comment on above: Order Comment: 54 YE ARS Performed By: #### L 3100.6450, L100.0100, L3410.9992, L500.4050, L501.9910, L500.4100 #### [facility] [address] [place], [address] ALK PHOS 81 U/L Normal 40-129 [facility] Comment on above: Order Comment: 54 YE ARS Performed By: #### L 3100.6450, L100.0100, L3410.9992, L500.4050, L501.9910, L500.4100 #### [facility] [address] [place], [address] ALT [Catalytic activity/Vol] 19 U/L Normal <=46 [facility] Comment on above: Order Comment: 54 YE ARS Performed By: #### L 3100.6450, L100.0100, L3410.9992, L500.4050, L501.9910, L500.4100 #### [facility] [address] [place], [address] AST [Catalytic activity/Vol] 20 U/L Normal <=37 [facility] Comment on above: Order Comment: 54 YE ARS Performed By: #### L 3100.6450, L100.0100, L3410.9992, L500.4050, L501.9910, L500.4100 #### [facility] [address] [place], [address] Bilirubin [Mass/Vol] 0.44 mg/dL Normal 0.00-1.30 [facility] Comment on above: Order Comment: 54 YE ARS Performed By: #### L 3100.6450, L100.0100, L3410.9992, L500.4050, L501.9910, L500.4100 #### [facility] [address] [place], [address] BUN/CRE 15.9 RATIO Normal 10-20 [facility] Comment on above: Order Comment: 54 YE ARS Performed By: #### L 3100.6450, L100.0100, L3410.9992, L500.4050, L501.9910, L500.4100 #### [facility] [address] [place], [address] Calcium [Mass/Vol] 9.9 mg/dL Normal 7.6-11.0 [facility] Comment on above: Order Comment: 54 YE ARS Performed By: #### L 3100.6450, L100.0100, L3410.9992, L500.4050, L501.9910, L500.4100 #### [facility] [address] [place], [address] Chloride [Moles/Vol] 98 mmol/L Normal 98-108 [facility] Comment on above: Order Comment: 54 YE ARS Performed By: #### L 3100.6450, L100.0100, L3410.9992, L500.4050, L501.9910, L500.4100 #### [facility] [address] [place], [address] CO2 [Moles/Vol] 25.0 mmol/L Normal 21.0-32.0 [facility] Comment on above: Order Comment: 54 YE ARS Performed By: #### L 3100.6450, L100.0100, L3410.9992, L500.4050, L501.9910, L500.4100 #### [facility] [address] [place], [address] Creatinine [Mass/Vol] 1.12 mg/dL Normal 0.70-1.20 [facility] Comment on above: Order Comment: 54 YE ARS Performed By: #### L 3100.6450, L100.0100, L3410.9992, L500.4050, L501.9910, L500.4100 #### [facility] [address] [place], [address] GAP 15 Normal 5-15 [facility] Comment on above: Order Comment: 54 YE ARS Performed By: #### L 3100.6450, L100.0100, L3410.9992, L500.4050, L501.9910, L500.4100 #### [facility] [address] [place], [address] GFR/1.73 sq M.predicted among non-blacks MDRD (S/P/Bld) [Vol rate/Area] 79 mL/min/{1.73_m2} Normal >60 [facility] Comment on above: Order Comment: 54 YE ARS Result Comment: mL/m in/1.73m2 CKD-EPI Creatinine Equation (2020) Performed By: #### L 3100.6450, L100.0100, L3410.9992, L500.4050, L501.9910, L500.4100 #### [facility] [address] [place], [address] Globulin (S) [Mass/Vol] 2.8 g/dL Normal 2.2-4.2 [facility] Comment on above: Order Comment: 54 YE ARS Performed By: #### L 3100.6450, L100.0100, L3410.9992, L500.4050, L501.9910, L500.4100 #### [facility] [address] [place], [address] Glucose [Mass/Vol] 92 mg/dL Normal 70-99 [facility] Comment on above: Order Comment: 54 YE ARS Performed By: #### L 3100.6450, L100.0100, L3410.9992, L500.4050, L501.9910, L500.4100 #### [facility] [address] [place], [address] Potassium [Moles/Vol] 3.5 mmol/L Normal 3.3-5.1 [facility] Comment on above: Order Comment: 54 YE ARS Performed By: #### L 3100.6450, L100.0100, L3410.9992, L500.4050, L501.9910, L500.4100 #### [facility] [address] [place], [address] Sodium [Moles/Vol] 137 mmol/L Normal 133-145 [facility] Comment on above: Order Comment: 54 YE ARS Performed By: #### L 3100.6450, L100.0100, L3410.9992, L500.4050, L501.9910, L500.4100 #### [facility] [address] [place], [address] T PROT 7.5 g/dL Normal 5.9-8.4 [facility] Comment on above: Order Comment: 54 YE ARS Performed By: #### L 3100.6450, L100.0100, L3410.9992, L500.4050, L501.9910, L500.4100 #### [facility] [address] [place], [address] Urea nitrogen [Mass/Vol] 18 mg/dL Normal 4-19 [facility] Comment on above: Order Comment: 54 YE ARS Performed By: #### L 3100.6450, L100.0100, L3410.9992, L500.4050, L501.9910, L500.4100 #### [facility] [address] [place], [address] Lipid Profileon 01-10-2025 CHOL:HDL 5.36 Normal [facility] Comment on above: Performed By: #### L 3100.6450, L100.0100, L3410.9992, L500.4050, L501.9910, L500.4100 #### [facility] [address] [place], [address] Cholesterol [Mass/Vol] 188 mg/dL Normal <=200 [facility] Comment on above: Result Comment: Chol esterol level, Desirable <200 mg/dL Borderline high cholesterol 200-239 mg/dL High cholesterol >=240 mg/dL Recommendations of the NCEP Adult Treatment Panel for the following risk-cutoff thresholds for the [place] population. Performed By: #### L 3100.6450, L100.0100, L3410.9992, L500.4050, L501.9910, L500.4100 #### [facility] [address] [place], [address] Cholesterol in HDL [Mass/Vol] 35 mg/dL Low [facility] Comment on above: Result Comment: [place] on[place] Cholesterol Education Program (NCEP) guidelines: <40 mg/dL: Low HDL-cholesterol (major risk factor for CHD) >= 60 mg/dL: High HDL-cholesterol (negative risk factor for CHD) HDL-cholesterol is affected by a number of factors, e.g. smoking, exercise, hormones, sex and age. Performed By: #### L 3100.6450, L100.0100, L3410.9992, L500.4050, L501.9910, L500.4100 #### [facility] [address] [place], [address] Cholesterol in LDL [Mass/Vol] 125 mg/dL Normal [facility] Comment on above: Result Comment: Bord odqmzh=492-560 mg/dL Higher Lyea=205 mg/dL or greater Performed By: #### L 3100.6450, L100.0100, L3410.9992, L500.4050, L501.9910, L500.4100 #### [facility] [address] [place], [address] Cholesterol in VLDL [Mass/Vol] 28 mg/dL Normal 5-40 [facility] Comment on above: Performed By: #### L 3100.6450, L100.0100, L3410.9992, L500.4050, L501.9910, L500.4100 #### [facility] [address], [address] Triglyceride [Mass/Vol] 140 mg/dL Normal [facility] Comment on above: Result Comment: The drugs N-Acetylcysteine and Metamizole may falsely depress this assay. Normal range: <150 mg/dL Borderline High: 150-199 mg/dL High: 200-499 mg/dL Very High: >500 mg/dL Performed By: #### L 3100.6450, L100.0100, L3410.9992, L500.4050, L501.9910, L500.4100 #### [facility] [address] [place], [place], [address] PSA,Total - Annual Screenon 01-10-2025 PSA,TOT SCREEN 1.31 ng/mL Normal 0.02-4.00 [facility] Comment on above: Result Comment: This test was performed using the [employer] tPSA method. Measured values of a patient??sample can vary depending on the testing procedure used. PSA values determined on patient samples by different testing procedures cannot be used interchangeably. If there is a change in PSA assays while monitoring therapy, sequential testing should be performed to confirm baseline values. Performed By: #### L 3100.6450, L100.0100, L3410.9992, L500.4050, L501.9910, L500.4100 #### [facility] [address] [place], [place], [address] Pulmonary Visit Reporton Pulmonary Visit Report [facility] [address] [place], [place] [address] OFFICE VISIT Date of Service: 10/27/24 MR#: [id number] Acct: [id number] Name: DANTE CARSON Rep #: [id number] : 1970 Provider: JENNIFER Smith Age/Sex: 54/M [id number] Status: Signed Assessment and Plan Assessment and Plan (1) Asthma: Status: Chronic Qualifiers: Asthma severity: moderate Asthma persistence: persistent Asthma complication type: uncomplicated Qualified Code(s): J45.40 - Moderate persistent asthma, uncomplicated Plan: He does not appear to be in exacerbation today. I did explain to him that 3 exacerbations in 12 months is not ideal. He likely would benefit from a maintenance inhaler, however the patient is opposed to taking a daily inhaler. I am going to place him on Airsupra. He was instructed to utilize 2 puffs up to 3 times daily as needed. He was reminded to rinse his mouth out after each use, conveys understanding. Follow-up in the office in 1 year. Contact the office with any new or worsening symptoms in the meantime. Medications: New albuterol-budesonide 90-80 mcg/actuation (Airsupra) as a single dose; may repeat up to 6 doses per day (12 inhalations) 2 inhalations inhalation TID PRN 10.7 grams 11RF shortness of breath HPI HPI Comments Details: This patient presents to the office today follow-up on his moderate persistent asthma. He is ambulatory and currently on room air. He has not recently been seen in the ED or urgent care for any respiratory illnesses. He has used a prednisone taper on 3 occasions over the past year. He has not recently needed to use his albuterol rescue inhaler. If you recall, he stopped taking a maintenance inhaler after last year's office visit. He denies any shortness of breath. He denies any cough, sputum production or hemoptysis. He has not had any wheezing, chest tightness, chest pain or palpitations. Intake Vital Signs 10/23/23 14:15 10/27/24 08:25 Height 5 ft 9 in 5 ft 9 in Weight: 204 lb BMI 30.1 BP 155/74 H Blood Pressure Location Lt brachial Position Sitting Respiration 18 Pulse 86 Pulse Source Monitor Temp 97.3 F L Temperature Source Temporal Artery Pulse Oximetry (%) 98 Oxygen Delivery Method room air Intake Visit Reasons: 1 Y FU Chief Complaint: c-scope/hemorrhoids Accompanied by: Self Allergies No Known Allergies Allergy (Verified 10/27/24 14:47) Medications ???Medication ???Instructions ???Recorded ???Confirmed ???Type fluticasone propionate 50 2 spray intranasal DAILY #18.2 mL 10/16/22 10/23/23 Rx mcg/actuation nasal spray,suspension ezetimibe 10 mg tablet 10 mg PO DAILY 10/23/23 10/27/24 H istory hydrochlorothiazide 25 mg tablet 25 mg PO DAILY 10/23/23 10/27/24 H istory albuterol 90 mcg-budesonide 80 2 inh inhalation TID PRN shortness 10/27/24 10/27/24 Rx mcg/actuation HFA aerosol inhaler of breath #10.7 grams (Airsupra) amlodipine 10 mg-benazepril 40 mg 1 cap PO QDAY 10/27/24 10/27/24 H istory capsule PFSH Medical History Hemorrhoids Arthritis HLD (hyperlipidemia) Asthma Fatigue Shoulder pain Shortness of breath Hypertension Surgical History History of placement of ear tubes ankle surgery H/O knee surgery Family History Grandfather Emphysema lung Grandmother Emphysema lung Mother Cancer uterine cancer Diabetes Heart disease CVA (cerebral vascular accident) Social History household members: none housing: house current occupational status: employed current occupation: [employer], [employer] pets and animals: Yes (5 steers) pets and animals: farm animals Smoking Status: Never smoker Smokeless tobacco user: chewing tobacco and snus second hand exposure: No alcohol intake: current alcohol intake frequency: holidays/special occasions only Alcohol type: beer substance use type: does not use Review of Systems Resp Respiratory: Yes as per HPI Exam Const Constitutional: Positive conversant, cooperative, in no acute respiratory distress, healthy appearing, well developed, well nourished, good hygiene and obese Head Head: Yes normocephalic, Yes atraumatic and No cyanosis of lips/distal nose Eyes Eye: Positive clear conjunctiva; Negative nystagmus Ears Ear: Positive hearing normal and external ears normal Nose Nose: Yes external nose normal and Yes clear nasal discharge Mouth Mouth: Positive oral mucosae normal Neck Neck: Positive normal visual inspection, full ROM a (more content not included)... Normal [facility] Absolute lymphocyte countOrd ered By: Adrian Dobbs on 01-06-2024 Lymphocytes Auto (Unsp spec) [#/Vol] 2.77 10*3/uL 0.83-4.51 [facility] Automated lymphocyte count a s percentage of total leukocytesOrdered By: Adrian Dobbs on 01-06-2024 Lymphocytes/100 WBC Auto (Unsp spec) 26.4 % 19-41 [facility] Basophil percentageOrdered B y: Adrian Dobbs on 01-06-2024 Basophils/100 WBC (Bld) 0.6 % 0-1 [facility] Bilirubin [Mass/Vol] 0.50 mg/dL 0.20-1.00 [facility] Comment on above: For patients on eltr ombopag therapy, use of Dimension [place] TBIL is not recommended. Chloride [Moles/Vol] 103 mmol/L 98-107 [facility] Cholesterol [Mass/Vol] 197 mg/dL <200 [facility] Comment on above: <200 mg/dL Desirable 200-240 mg/dL Borderline >240 mg/dL High Risk Eosinophils/100 WBC (Bld) 1.7 % 0-5 [facility] Glucose [Mass/Vol] 93 mg/dL 74-106 [facility] Hemoglobin (Bld) [Mass/Vol] 14.1 g/dL 13.0-16.5 [facility] Monocytes/100 WBC (Bld) 9.1 % 0-10 [facility] Neutrophils (Bld) [#/Vol] 6.5 10*3/uL 2.0-7.7 [facility] Neutrophils/100 WBC (Bld) 61.9 % 47-70 [facility] Potassium [Moles/Vol] 3.4 mmol/L 3.5-5.1 [facility] Protein [Mass/Vol] 7.4 g/dL 6.4-8.2 [facility] Sodium [Moles/Vol] 138 mmol/L 136-145 [facility] Triglyceride [Mass/Vol] 364 mg/dL <199 [facility] Comment on above: The drugs N-Acetylcy steine and Metamizole may falsely depress this assay.Serum Triglycerides Reference Interval Normal <150 mg/dL Borderline high 150 - 199 mg/dL High 200 - 499 mg/dL Very High > or = 500 mg/dL WBC (Bld) [#/Vol] 10.5 10*3/uL 4.4-11.0 [facility] Determination of erythrocyte mean corpuscular volume (MCV)Ordered By: Adrian Dobbs on 01-06-2024 MCV (RBC) [Entitic vol] 91.3 fL 80-94 [facility] Erythrocyte distribution wid th ratioOrdered By: Adrian Dobbs on 01-06-2024 Erythrocyte distribution width (RBC) [Ratio] 12.3 % 11.6-14.6 [facility] Erythrocyte distribution wid th standard deviationOrdered By: Adrian Dobbs on 01-06-2024 Erythrocyte distribution width (RBC) [Entitic vol] 40.5 fL 35.1-43.9 [facility] Hematocrit Auto (Bld) [Volum e fraction]Ordered By: Adrian Dobbs on 01-06-2024 Hematocrit (Bld) [Volume fraction] 41.8 % 40-54 [facility] Immature granulocytes/100 WB C Auto (Bld)Ordered By: Adrian Dobbs on 01-06-2024 Immature granulocytes/100 WBC (Bld) 0.300 % 0.0-0.9 [facility] Comment on above: IG% - Immature Granu locytes (promyelocytes, myelocytes and metamyelocytes) > 1% indicates that a LEFT SHIFT is Present. Laboratory - Chemistry and C hemistry - challengeOrdered By: Adrian Dobbs on 01-06-2024 Albumin/Globulin [Mass ratio] 1.2 {ratio} 0.9-2.4 [facility] ALP [Catalytic activity/Vol] 67 U/L 45-117 [facility] ALT [Catalytic activity/Vol] 29 U/L 16-61 [facility] Cholesterol in HDL [Mass/Vol] 30 mg/dL >40 [facility] Comment on above: The drugs N-Acetylcy steine and Metamizole may falsely depress this assay. Reference Range HDL <40 mg/dL Low HDL Cholesterol HDL >or= 60 mg/dL High HDL Cholesterol Cholesterol in LDL [Mass/Vol] 94 mg/dL 0-130 [facility] CO2 [Moles/Vol] 27.0 mmol/L 21.0-32.0 [facility] Globulin (S) [Mass/Vol] 3.4 g/dL 2.2-4.2 [facility] Urea nitrogen/Creatinine [Mass ratio] 15.2 mg/mg 10-20 [facility] Laboratory - Hematology and Cell countsOrdered By: Adrian Dobbs on 01-06-2024 MCH (RBC) [Entitic mass] 30.8 pg 27.0-32.0 [facility] MCHC (RBC) [Mass/Vol] 33.7 g/dL 32-36 [facility] Nucleated RBC/100 WBC (Bld) [Ratio] 0 % 0-5 [facility] Platelet mean volume (Bld) [Entitic vol] 8.8 fL 6.2-12.0 [facility] Platelets (Bld) [#/Vol] 328 10*3/uL 150-450 [facility] No Panel InformationOrdered By: Adrian Dobbs on 01-06-2024 Estimated GFR (MDRD) Amer 89 mL/min >60 [facility] Comment on above: GFR Calc Estimated GFR (MDRD) Non-Af Amer 73 mL/min >60 [facility] Comment on above: Non- GFR Calc Lead 5.1 ug/dL 0.0-3.4 [facility] Comment on above: Testing performed by Inductively coupled plasma/MassSpectrometry.Verified by repeat analysisAnalysis by inductively coupled plasma/massspectrometry (ICP/MS) Environmental Exposure: WHO Recommendation <5.0 Occupational Exposure: OSHA Lead Std 40.0 [place] 30.0 Detection Limit = 1.0Performed at: [facility] [id number] Director: Jadyn Townsend MD, Phone: [phone] at: [facility] [id number] [place], [place] [id number] Director: Devon Vargas PhD, Phone: [phone] Lyme Disease IgG Ab 18 kDa Band Absent . [facility] Lyme Disease IgG Ab 23 kDa Band Absent . [facility] Lyme Disease IgG Ab 28 kDa Band Absent . [facility] Lyme Disease IgG Ab 30 kDa Band Absent . [facility] Lyme Disease IgG Ab 39 kDa Band Absent . [facility] Lyme Disease IgG Ab 41 kDa Band Present . [facility] Lyme Disease IgG Ab 45 kDa Band Absent . [facility] Lyme Disease IgG Ab 58 kDa Band Absent . [facility] [facility] L[facility] Disease IgG Ab 66 kDa Band Absent . [facility] Lyme Disease IgG Ab 93 kDa Band Absent . [facility] Lyme Disease IgG West Blot Interp Negative . [facility] Comment on above: Positive: 5 of the f ollowing Borrelia-specific bands: 18,23,28,30,39,41,45,58, 66, and 93. Negative: No bands or banding patterns which do not meet positive criteria. Lyme Disease IgM Ab (Western Blot) Negative . [facility] Comment on above: Note: An equivocal o r positive EIA result followed by anegative Line Blot result is considered NEGATIVE. Anequivocal or positive EIA result followed by a positiveLine Blot is considered POSITIVE by the CDC.Positive: 2 of the following bands: 23,39 or 41Negative: No bands or banding patterns which do not meetpositive criteria.Criteria for positivity are those recommended byCDC/ASTPHLD. p23=Osp C, g93=hwitkpigfSeig:Sera from individuals with the following may cross reactin the Lyme Line Blot assays: other spirochetal diseases(periodontal disease, leptospirosis, relapsing fever, yaws,and pinta); connective autoimmune (Rheumatoid Arthritis andSystemic Lupus Erythematosus and also individuals withAntinuclear Antibody); other infections (Jesus MountainSpotted Fever; Adilson-Sullivan Virus, and Cytomegalovirus).Please Note: Lyme immunoblot alone is not recommended forthe diagnosis of Lyme disease. Current guidelines recommendthe use of a two-tiered approach to Lyme serology testingto improve the sensitivity and specificity of testing.[facility] offers test code [id number] Lyme Disease Serology withReflex to aid in the diagnosis of Lyme Disease. Lyme Disease IgM Ab 23 kDa Band Absent . [facility] Lyme Disease IgM Ab 39 kDa Band Absent . [facility] Lyme Disease IgM Ab 41 kDa Band Absent . [facility] VLDL Cholesterol 73 mg/dL 5-40 [facility] RBC Auto (Bld) [#/Vol]Ordere d By: Adrian Dobbs on 01-06-2024 RBC (Bld) [#/Vol] 4.58 10*6/uL 4.6-6.2 [facility] Serum or plasma calcium sai urement (mass/volume)Ordered By: Adrian Dobbs on 01-06-2024 Calcium [Mass/Vol] 9.3 mg/dL 8.5-10.1 [facility] Serum or plasma creatinine m easurement (mass/volume)Ordered By: Adrian Dobbs on 01-06-2024 Creatinine [Mass/Vol] 1.12 mg/dL 0.70-1.30 [facility] Comment on above: The validity of the calculated GFR & GFRAA in patients over 70 years has not been determined. Clinical correlation is essential. Serum or plasma urea nitroge n measurement (mass/volume)Ordered By: Adrian Dobbs on 01-06-2024 Urea nitrogen [Mass/Vol] 17 mg/dL 7-18 [facility] Thin prep Papanicolaou smear with manual screeningOrdered By: Adrian Dobbs on 01-06-2024 Thin prep Papanicolaou smear with manual screening 4.0 g/dL 3.2-5.0 [facility] Thin prep Papanicolaou smear with manual screening 19 U/L 15-37 [facility] Thin prep Papanicolaou smear with manual screening 8 5-15 [facility] Whole blood hemoglobin A1c/t otal hemoglobin ratio (mass fraction)Ordered By: Adrian Dobbs on 01-06-2024 HbA1c (Bld) [Mass fraction] 5.5 % 3.8-5.6 [facility] Comment on above: Normal < 5.7 % Predi abetic 5.7 - 6.4 % Diabetic >or= 6.5 % Please note range changes. Basophil percentageon 2021 Bilirubin [Mass/Vol] 0.60 mg/dL 0.20-1.00 [facility] Work Phone: Comment on above: For patients on eltr ombopag therapy, use of Dimension [place] TBIL is not recommended. Chloride [Moles/Vol] 105 mmol/L 98-107 [facility] Work Phone: Glucose [Mass/Vol] 96 mg/dL 74-106 [facility] Work Phone: [phone] Potassium [Moles/Vol] 4.0 mmol/L 3.5-5.1 [facility] Work Phone: Protein [Mass/Vol] 7.7 g/dL 6.4-8.2 [facility] Work Phone: Sodium [Moles/Vol] 138 mmol/L 136-145 [facility] Work Phone: [phone] Laboratory - Chemistry and C hemistry - challengeon 08-23-2022 ALP [Catalytic activity/Vol] 68 U/L 45-117 [facility] Work Phone: [phone] ALT [Catalytic activity/Vol] 30 U/L 16-61 [facility] Work Phone: [phone] CO2 [Moles/Vol] 26.0 mmol/L 21.0-32.0 [facility] Work Phone: [phone] Globulin (S) [Mass/Vol] 3.5 g/dL 2.2-4.2 [facility] Work Phone: [phone] Urea nitrogen/Creatinine [Mass ratio] 13.9 mg/mg 10-20 [facility] Work Phone: No Panel Informationon 08-23 Estimated GFR (MDRD) Amer 81 mL/min >60 [facility] Work Phone: Comment on above: GFR Calc Estimated GFR (MDRD) Non-Af Amer 67 mL/min >60 [facility] Work Phone: Comment on above: Non- GFR Calc Prostate Specific Antigen Screen 1.43 ng/mL 0.00-4.00 [facility] Work Phone: Comment on above: This test was perfor med using the TPSA assay method for theRonald Reagan [facility] CenterScribbleLive chemistry system. Values obtained with differentassay methods cannot be used interchangably.When changing PSA assays in the course of monitoring apatient, additional sequential testing should be carriedout to confirm baseline values. Serum or plasma albumin sai urement (mass/volume)on 08-23-2022 Albumin [Mass/Vol] 4.2 g/dL 3.2-5.0 [facility] Work Phone: Serum or plasma albumin/glob ulin mass ratioon 08-23-2022 Albumin/Globulin [Mass ratio] 1.2 {ratio} 0.9-2.4 [facility] Work Phone: Serum or plasma calcium sai urement (mass/volume)on 08-23-2022 Calcium [Mass/Vol] 9.1 mg/dL 8.5-10.1 [facility] Work Phone: Serum or plasma creatinine m easurement (mass/volume)on 08-23-2022 Creatinine [Mass/Vol] 1.22 mg/dL 0.70-1.30 [facility] Work Phone: Comment on above: The validity of the calculated GFR & GFRAA in patients over 70 years has not been determined. Clinical correlation is essential. Serum or plasma urea nitroge n measurement (mass/volume)on 08-23-2022 Urea nitrogen [Mass/Vol] 17 mg/dL 7-18 [facility] Work Phone: Thin prep Papanicolaou smear with manual screeningon 08-23-2022 Thin prep Papanicolaou smear with manual screening 19 U/L 15-37 [facility] Work Phone: Thin prep Papanicolaou smear with manual screening 7 5-15 [facility] Work Phone: Vital Signs Date Time Vital Sign Value Performing Clinician Faci lity 06-23-2025 15:17-0400 Body height 175.[address] Adrian Dobbs DO Work Phone: [facility] 06-23-2025 15:17-0400 Body mass index (BMI) [Ratio] 30.1 kg/m2 Dr. Adrian Dobbs DO Work Phone: [facility] 06-23-2025 15:17-0400 Body weight 92.[address] Adrian Dobbs DO Work Phone: [facility] 06-23-2025 15:17-0400 Diastolic blood pressure 68 mm[Hg] Dr. Adrian Dobbs DO Work Phone: [facility] 06-23-2025 15:17-0400 Heart rate 79 /min Dr. Adrian Dobbs DO Work Phone: [facility] 06-23-2025 15:17-0400 Respiratory rate 18 /min Dr. Adrian Dobbs DO Work Phone: [facility] 06-23-2025 15:17-0400 Systolic blood pressure 123 mm[Hg] Dr. Adrian Dobbs DO Work Phone: [facility] 12-08-2023 10:46-0400 Body temperature 97.6 [degF] Dr. Adrian Dobbs Work Phone: [facility] 12-08-2023 10:46-0400 Diastolic blood pressure 56 mm[Hg] Dr. Adrian Dobbs Work Phone: [facility] 12-08-2023 10:46-0400 Heart rate 87 /min Dr. Adrian Dobbs Work Phone: [facility] 12-08-2023 10:46-0400 Respiratory rate 16 /min Dr. Adrian Dobbs Work Phone: [facility] 12-08-2023 10:46-0400 SaO2% (BldA) [Mass fraction] 100 % Dr. Adrian Dobbs Work Phone: [facility] 12-08-2023 10:46-0400 Systolic blood pressure 142 mm[Hg] Dr. Adrian Dobbs Work Phone: [facility] 12-08-2023 10:09-0400 Body height 175.[address] Adrian Dobbs Work Phone: [facility] 12-08-2023 10:09-0400 Body mass index (BMI) [Ratio] 30.2 kg/m2 Dr. Adrian Dobbs Work Phone: [facility] 12-08-2023 10:09-0400 Body weight 92.[address] Adrian Dobbs Work Phone: [facility] 10-23-2023 14:15-0500 Body mass index (BMI) [Ratio] 29.5 kg/m2 Dr. Adrian Dobbs Work Phone: [facility] 10-23-2023 14:15-0500 Body temperature 98.4 [degF] Dr. Adrian Dobbs Work Phone: [facility] 10-23-2023 14:15-0500 Body weight 90.[address] Adrian Dobbs Work Phone: [facility] 10-23-2023 14:15-0500 Diastolic blood pressure 77 mm[Hg] Dr. Adrian Dobbs Work Phone: [facility] 10-23-2023 14:15-0500 Heart rate 75 /min Dr. Adrian Dobbs Work Phone: [facility] 10-23-2023 14:15-0500 Respiratory rate 18 /min Dr. Adrian Dobbs Work Phone: [facility] 10-23-2023 14:15-0500 SaO2% (BldA) [Mass fraction] 96 % Dr. Adrian Dobbs Work Phone: [facility] 10-23-2023 14:15-0500 Systolic blood pressure 164 mm[Hg] Dr. Adrian Dobbs Work Phone: [facility] Encounters Encounter Date Encounter Type Care Provider Facility Start: 07-22-2025 ambulatory Adrian Dobbs Facility: [facility] Start: 06-23-2025 End: 06-23-[address] Johnny Navarro DO -[facility] Work Phone: Start: 06-23-2025 End: 06-23-[address] Adrian Dobbs DO Work Phone: -[facility] Start: 01-13-2025 Encounter for genera l adult medical examination without abnormal findings Adrian Dobbs [facility] Start: 01-10-2025 End: 01-10-2025 ambulatory Adrian Dobbs Facility:[facility] Start: 10-27-2024 End: 10-27-2024 ambulatory Adrian Dobbs Facility:[facility] Start: 01-06-2024 End: 01-06-[address] Adrian Dobbs Work Phone: [facility] Work Phone: Start: 01-06-2024 End: 01-06-[address] Adrian Dobbs Work Phone: [facility] Start: 12-08-2023 End: 12-08-[address] Adrian Dobbs Work Phone: [facility] Work Phone: Start: 12-08-2023 End: 12-08-2023 Emergency department patient visit Dr. Adrian Dobbs Work Phone: [facility] Work Phone: Start: 10-23-2023 End: 10-23-[address] Adrian Dobbs Work Phone: [facility] Work Phone: Start: 08-23-2022 End: 08-23-2022 ambulatory [facility] Work Phone: Start: 08-23-2022 End: 08-23-2022 [facility] Plan of Treatment Date Care Activity Detail Author Start: 06-23-2025 End: 06-23-2025 Evaluation of diagnostic study results [facility] Natriuretic peptide. B prohormone N-Terminal [Mass/volume] in Serum or Plasma [facility] Patient Education ED Groin Strain [facility] Work Phone: Patient referral [facility] Work Phone: Radionuclide imaging of perfusion of myocardium under exercise stress [facility] Payers Date Payer Category Payer Unknown [id number] 2024 Self-pay [id number] Private Health Insurance [id number] Unknown ANTHEM [id number] [facility] [id number] Unknown [id number] Unknown [id number] Unknown [id number] Unknown [id number] Social History Date Type Detail Facility Start: 09-27-2021 End: 12-08-2023 Tobacco smoking status NHIS Unknown if ever smoked [facility] Start: 01-26-2020 [facility] Start: 01-26-2020 [facility] Start: 1970 Sex Assigned At Male [facility] Start: 06-23-2025 Tobacco smoking stat us NHIS Never smoked tobacco (finding) [facility] Sex Male [facility] Progress note 06-23-2025 Note Date & Type Note Facility 06-23-2025 Progress note [facility] Progress note 06-23-2025 Note Date & Type Note Facility 06-23-2025 Progress note Note Date/Time June 23, 2025 3:44pm [facility] [address] [place], [place] [address] OFFICE VISIT Date of Service: 06/23/25 MR#: [id number] Acct: [id number] Name: DANTE CARSON Rep #: [id number] : 1970 Provider: Dr. Aren Navarro DO Age/Sex: 55/M Location: [facility] Status: Signed HPI HPI History of Present Illness Details: Mr. Carson is a 55-year-old male with a documented past medical history of essential hypertension asthma (moderate persistent with history of exacerbation), hyperlipidemia, obstructive sleep apnea. Patient is presenting today for management of lower extremity edema and chest pain. His home medications are notable for amlodipine?benazepril 10-40 mg, Zetia 10 mgdaily, hydrochlorothiazide 20 mg daily. Last LDL: 94. Patient seen today with complaints of intermittent chest pain, intermittent shortness of breath, and intermittent bilateral lower extremity edema. Patient admits symptoms have been occurring over the past 2 to 3 years and have mostly been stable. He describes the chest pain as a "knot like sensation". It is located on the left side of his chest and radiates to his lower ribs. It lasts from a few seconds to under a minute occurring both at rest and with activity, occurring on average 1-2 times per week. 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 He admits he has had worsening lower extremity edema over the past several months. It is bilateral, and he notices it at the end of the workday when he takes his boots off. It is then resolved upon awakening in the morning. 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 He notes that generally he is able to do his activities without any symptoms outside of the these episodes and his symptoms are not predictable. He notes hehas chronic shortness of breath that has remained stable over the past few years. 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 Is patient in pain?: No Allergies No Known Allergies Allergy (Verified 06/23/25 15:04) Medications ?Medication ?Instructions ?Recorded ?Confirmed ?Type ezetimibe 10 mg tablet 10 mg PO DAILY 10/23/2306/09 History hydrochlorothiazide 25 mg tablet 25 mg PO DAILY 06/23/25 History albuterol 90 mcg-budesonide 80 2 inh inhalation TID MS N shortness 10/27/24 06/23/25 Rx mcg/actuation HFA aerosol inhaler of breath #10.7 gram s (Airsupra) amlodipine 10 mg-benazepril 40 mg 1 cap PO QDAY 06/23/25 History capsule fluticasone propionate 50 2 spray intranasal DAILY PRN 06/23/25 History mcg/actuation nasal spray,suspension Have you fallen in the past year?: No PFSH Medical History (Updated 06/23/25 @ 16:[address] Johnny Navarro, DO) Plantar fibromatosis Internal hemorrhoids NERI (obstructive sleep apnea) Hemorrhoids Arthritis HLD (hyperlipidemia) Asthma Fatigue Shoulder pain Shortness of breath Hypertension Surgical History History of placement of ear tubes ankle surgery H/O knee surgery Family History (Updated 06/21/25 @ 09:28 by Peg Simon) Grandfather Emphysema lung Grandmother Emphysema lung Mother Cancer uterine cancer Diabetes Heart disease CVA (cerebral vascular accident) Polymyositis Brother Hypertension Sister Hypertension Social History (Updated 06/21/25 @ 09:30 by Peg Simon) household members: none housing: house current occupational status: employed current occupation: [employer] pets and animals: Yes (5 steers) pets and animals: farm animals Smoking Status: Never smoker Smokeless tobacco user: chewing tobacco and snus second hand exposure: No alcohol intake: current alcohol intake frequency: a few times a month Alcohol type: beer substance use type: does not use caffeine: Yes Type: tea Number of servings: 2 what type of physical activity do you participate in: bicycling and other details: hiking ROS Const Const: Negative for weakness Eyes Eyes: Negative for change in vision ENT ENT: Negative for dizziness or balance problems Cardio Chest Pain: Yes (Describes as knots in his chest at times, shocks) Palpitations: No Edema: Bilateral Additional Details: See HPI Resp Respiratory: Positive for SOB with activity (Occasionally with exertion); Negative for SOB at rest or SOB orthopnea\\SOB lying down GI GI: Negative nausea or heartburn Musc Musc: Negative for balance problems Neuro Neuro: Negative for dizziness, lightheadedness, near syncope, syncope or weakness Cardiology Exam Const Appearance: cooperative, healthy appearing and comfortable Head Head: normal to inspection Eyes General: appearance normal, both eyes and all related structures Neck Neck: normal visual inspection and no JVD Chest Chest inspection: normal inspection of the chest and normal respiratory effort Auscultation: Bilateral: Clear to Auscultation Cardio Rate: regular rate Rhythm: regular rhythm Heart sounds: S1 normal and S2 normal GI GI: normal to inspection and soft Neuro General: patient alert, patient awake, patient oriented x3, gait normal and moves all extremities Extremities Lower Extremity Edema: Trace: Bilateral Psych Psychological: normal affect Supplemental Info Supplemental Information Venous Doppler Ultrasound (Left) 01/26/20 Interpretation Summary: Deep Veins of the left lower extremity are patent and compressible segmentally. There is no evidence of left lower extremity deep vein thrombosis. Valvular competence appears intact within the proximal deep venous system on the left. The left great saphenous vein appears patent and compressible segmentally. Assessment and Plan Assessment and Plan (1) Chest discomfort: Status: Chronic Comment: -Possible Cardiac Chest Pain: - Ongoing over years, unchanged in severity and frequency, knot-like sensation lasting seconds to a minute, occurring on average 1-2 times per week both at rest and with exertion. - Etiology is unclear, possibly cardiac due to risk factors including hypertension and obesity, and with exertional component. It is also possibly musculoskeletal pain due due to its chronicity and relation to manual labor - ECG reviewed, no ischemic changes normal sinus rhythm no evidence of prior infarction Plan: - Exercise stress SPECT to rule for ischemic assessment (2) Leg swelling: Status: Chronic Comment: - Etiology possible in the setting of chronic venous insufficiency and high doseamlodipine. Patient notes that it is mild and confined to below the knee occurring at the end of the workday and resolved upon awakening. However, patient has risk factors for heart failure. He is also complaining of shortness ofbreath on exertion, necessitating cardiac evaluation. Plan: -BNP and echocardiogram (3) HTN, goal below 130/80: Status: Chronic Comment: - Currently well-controlled in clinic today Plan: - Continue amlodipine?benazepril 10-40 mg and additional management per PCP (4) SALTER (dyspnea on exertion): Status: Acute Comment: - Etiology unclear but possible secondary to cardiac etiology above, pre-existing uncontrolled asthma (following with pulmonology), or deconditioning Plan: ? Plan per assessments above (5) Hyperlipidemia: Status: Chronic Qualifiers: Hyperlipidemia type: unspecified Qualified Code(s): E78.5 - Hyperlipidemia, unspecified Comment: -Last LDL: 94 - Patient declines statins at this time Plan: - Continue Zetia 10 mg daily Orders: Orders 12 Lead EKG performed by [facility] Today E78.5 - Hyperlipidemia, unspecified, G47.33 - Obstructive sleep apnea (adult) (pediatric), I10 - Essential (primary) hypertension Nuclear Stress Test - Treadmil 1 Month R07.89 - Other chest pain Pro- Brain NATRIURETIC PEPTIDE 1 Month R06.09 - Other forms of dyspnea Echo Complete 1 Month R06.09 - Other forms of dyspnea Coding Level of Care Code Off vis,new,level 4 History Expanded Problem Focused Exam Expanded Problem Focused Medical Decision Making Moderate Complexity Diagnoses Chest discomfort R07.89 Leg swelling M79.89 HTN, goal below 130/80 I10 SALTER (dyspnea on exertion) R06.09 Hyperlipidemia, unspecified hyperlipidemia type E78.5 Hyperlipidemia type: unspecified Time Spent (min) 60 Comment Time spent in direct patient care and its related components Coding Level of Care Code Off vis,new,level 4 History Expanded Problem Focused Exam Expanded Problem Focused Medical Decision Making Moderate Complexity Diagnoses Chest discomfort R07.89 Leg swelling M79.89 HTN, goal below 130/80 I10 SALTER (dyspnea on exertion) R06.09 Hyperlipidemia, unspecified hyperlipidemia type E78.5 Hyperlipidemia type: unspecified Time Spent (min) 60 Comment Time spent in direct patient care and its related components Clinical Quality Measures Falls Risk Screening/Assistive Devices Have you fallen in the past year?: No 06/23/25 0134 <Electronically signed by Johnny Navarro DO> Date _ Johnny Navarro DO Cosigner Signature: Date (if applicable) CC: Dr. Adrian Dobbs, DO ~ [place] [facility] Work Phone: Evaluation note Note Date & Type Note Facility Evaluation note No assessment information availa [facility] Work Phone: Evaluation note Note Date & Type Note Facility Evaluation note Diagnosis Onset Date Asthma chronic Acute sinus infection noneac tive [facility] Work Phone: Evaluation note Note Date & Type Note Facility Evaluation note Diagnosis Onset Date Resolution SALTER (dyspnea on exertion) acute June 23 2:59pm Chest discomfort chronic June 23, 2025 2:59pm HTN, goal below 130/80 chronic Oc tober 2024 2:59pm Hyperlipidemia chronic June 2:59pm Leg swelling chronic June 23, 2025 2:59pm [facility] Work Phone: Reason for referral (narrative) Note Date & Type Note Facility Reason for referral (narrative) No reason for referral information available [facility] Work Phone: Family History No Family History Records Found Relationship Condition Age at Onset Recorded Date/T wallace grandfather Pulmonary emphysema Unknown grandmother Pulmonary emphysema Unknown mother Malignant neoplasm Unknown Diabetes mellitus Unknown Cardiac disease Unknown Cerebrovascular accident (CVA) Unknown Relationship Condition Age at Onset Recorded Date/T wallace grandfather Pulmonary emphysema Unknown grandmother Pulmonary emphysema Unknown mother Malignant neoplasm Unknown Diabetes mellitus Unknown Cardiac disease Unknown Cerebrovascular accident (CVA) Unknown Polymyositis Unknown brother Hypertension Unknown sister Hypertension Unknown Advance Directives No Advanced Directives Records Found Advance Directive Response Recorded Date/ Time Living Will No January 26, 2020 2 :27pm Power of Vacuum Metalizing Supervisor Yes January 26, 2020 2:27pm Advance Directive Response Recorded Date/ Time Living Will No December 08, 2023 10:11am Power of Vacuum Metalizing Supervisor No December 07 10:11am Chief Complaint and Reason for Visit Chief Complaint 1 Y FU RIGHT LOWER ABD PAIN Reason for Visit Asthma Acute sinus infection Chief Complaint 1 Y FU RIGHT LOWER ABD PAIN 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/[place] Reason for Visit Asthma Acute sinus infection Chief Complaint Admit Date EDEMA/HTN (SELF) June 23, 2025 2: 59pm Reason for Visit Admit Date SALTER (dyspnea on exertion) June 23 025 2:59pm Chest discomfort June 23, 2025 2: 59pm HTN, goal below 130/80 June 23, 2025 2:59pm Hyperlipidemia June 23, 2025 2: 59pm Leg swelling June 23, 2025 2: 59pm Summary Purpose Additional Source Comments Goals (unrecognized section and content) Goals may be documented in a n alternate sectionGoals may be documented in an alternate sectionGoals may be documented in an alternate sectionGoals may be documented in an alternate section Care Teams (unrecognized sec tion and content) Team Status: Active Member Role Status Dates Dr. Adrian Dobbs DO Family Provider Active Dr. Adrian Dobbs DO Primary Care Provider Active Team Status: Inactive Member Role Status Dates Dr. Adrian Dobbs DO Primary Care Provider, Referrin g Provider Active Dr. Rafael Blair MD Attending Provider Active Team Status: Inactive Member Role Status Dates Dr. Adrian Dobbs DO Primary Care Provider Active Dr. Andrzej White DO Emergency Provider Active Team Status: Inactive Member Role Status Dates Dr. Adrian Dobbs DO Primary Care Provider, Referrin g Provider Active Jimi BAEZ, PA Attending Provider Active Team Status: Inactive Member Role Status Dates Dr. Adrian Dobbs DO Primary Care Provider Active Dr. Andrzej White DO Attending Provider, Emergency Vadim myers Active Team Status: Inactive Member Role Status Dates Dr. Adrian Dobbs DO Primary Care Provider, Attendin g Provider Active Team Status: Active Member Role/Relationship Status Dates Dr. Adrian Dobbs DO Primary care physician Active Team Status: Inactive Member Role/Relationship Status Dates Dr. Adrian Dobbs DO Primary care physician Active Start: June 23, 2025 End: June 23, 2025 Dr. Adrian Dilia , DO Referring Provider Active Start: June 23, 2025 End: June 23, 2025 Dr. Johnny Navarro , DO Attending physician Active Start: June 23, 2025 End: June 23, 2025 (unrecognized sect ion and content) No Status Records Found INFORMATION SOURCE (unrecogn ized section and content) DATE CREATED AUTHOR 07/21/2025 [facility] FOR RECORDS PERTAINING TO PATIENTS WHO ARE OR HAVE BEEN ENROLLED IN A CHEMICAL DEPENDENCY/SUBSTANCEABUSE PROGRAM, SOME INFORMATION MAY BE OMITTED. This clinical summary was aggregated from multiple sources. Caution should be exercised in using it in the provision of clinical care. This summary normalizes information from multiple sources, and as a consequence, information in this document may materially change the coding, format and clinical context of patient data. In addition, data may be omitted in some cases. CLINICAL DECISIONS SHOULD BE BASED ON THE PRIMARY CLINICAL RECORDS. [facility] provides no warranty or guarantee of the accuracy or completeness of information in this document.
--- NOTE | 2025-07-22 06:08 | ECHOD_ITS ---
Reason For Study Reason For Study: SALTER Procedure This was a 2D Doppler, Color Flow transthoracic echocardiogram. Exam performed in department. Left Ventricle Normal left ventricular size. EF by 2D Mcduffie's biplane: 70% Normal diastolic function E/e' suggest normal filling pressures. No regional wall motion abnormalities noted. Right Ventricle Normal right ventricle. Unable to estimate RV systolic pressure due to insufficient tricuspid regurgitant envelope. Normal systolic function. Atria The left and right atria are normal. Mitral Valve The mitral valve is structurally normal. No prolapse or stenosis seen. There is no stenosis. No mitral regurgitation. Tricuspid Valve Normal tricuspid valve. There is no tricuspid stenosis. No tricuspid regurgitation. Aortic Valve Normal aortic valve. Trisinus/trileaflet aortic valve. No hemodynamically significant aortic stenosis. No aortic regurgitation. Pulmonic Valve Normal pulmonic valve. There is no pulmonic valvular stenosis. Trace pulmonic regurgitation. Great Vessels The aortic root is not well visualized. Ascending aorta not well-visualized. Pericardium/Pleural Epicardial fat. No pericardial effusion. MMode/2D Measurements & Calculations LVIDd: 4.4 cm IVSd: 1.1 cm LAV(MOD- bp): 32.0 ml LVIDs: 3.2 cm LVPWd: 0.98 cm LAV(MOD- bp) Indexed: 15.4 ml/m2 FS: 27.2 % LAV(MOD- sp2): 31.9 ml LAV(MOD- sp4): 31.2 ml SV(MOD-sp4): 50.7 ml SV(sp4- el): 52.1 ml LVAd ap4: 26.8 cm2 LVLd ap4: 8.4 cm SI(MOD-sp4): 24.3 ml/m2 EDV(MOD-sp4): 71.4 ml EDV(sp4-el): 72.4 ml LVAs ap4: 12.6 cm2 LVLs ap4: 6.7 cm ESV(MOD-sp4): 20.7 ml ESV(sp4-el): 20.3 ml EF(MOD-sp4): 71.0 % EF(sp4-el): 71.9 % LA A4 area: 13.5 cm2 LA dimension(2D): 3.6 cm RA A4 area: 12.5 cm2 Time Measurements MV dec time: 0.23 sec Doppler Measurements & Calculations MV E max elías: 85.9 cm/sec Lat Peak E' Elías: 16.5 cm/sec Med Peak E' Elías: 10.6 cm/sec MV A max eílas: 62.0 cm/sec E/E' lat: 5.2 E/E' med: 8.1 MV E/A: 1.4 MV V2 max: 81.0 cm/sec MV dec slope: 381.9 cm/sec2 Ao V2 max: 159.7 cm/sec MV max P.6 mmHg Ao max P.2 mmHg MV V2 mean: 46.7 cm/sec Ao V2 mean: 107.0 cm/sec MV mean P.0 mmHg Ao mean P.3 mmHg MV V2 VTI: 26.4 cm Ao V2 VTI: 30.9 cm AV (velocity ratio): 1.00 LV V1 max: 134.5 cm/sec PA V2 max: 141.1 cm/sec LV V1 max P.2 mmHg PA V2 mean: 88.5 cm/sec LV V1 mean P.4 mmHg LV V1 mean: 99.5 cm/sec LV V1 VTI: 30.8 cm ECHO/Echo Complete Interpretation Summary LVEF by 2D Mcduffie's biplane: 70% Normal diastolic function Normal left ventricular wall motion Normal RV function No hemodynamically significant valvular disease Ordering Physician: Johnny Navarro Referring Physician: Johnny Navarro Performed By: Jeanie Chris RCS
--- NOTE | 2025-07-22 09:52 | STRESSREP ---
Stress Test Report Date: 07/22/2025 Procedure: Exercise tolerance test/imaging study Indications: Chest pain Consent: Per the patient Procedure: The patient exercised on a Rafael protocol for 8 minutes achieving a peak heart rate of 123 bpm (73% predicted maximal heart rate) with a peak blood pressure 220/70 mmHg and a peak MET capacity of 10.1 METs. The baseline ECG demonstrated sinus rhythm. The peak exercise ECG showed sinus tachycardia with no ischemic changes. Occasional PVCs noted. The functional capacity was considered average. There was no complaint of chest discomfort during exercise or recovery. The examination was discontinued secondary to leg discomfort and dyspnea. The patient was injected with 13.4 mCi of technetium 99m Cardiolite and subsequently rest SPECT Cardiolite nuclear imaging was obtained in the horizontal long, vertical long, and short axis views. Post-exercise, the patient was injected with 42.7 mCi of technetium 99m Cardiolite and subsequently stress SPECT Cardiolite nuclear imaging was obtained in the horizontal long, vertical long, and short axis views. A gated Cardiolite study at peak stress was obtained. Rest and stress SPECT Cardiolite nuclear imaging status post realignment, normalization, and attenuation correction, demonstrates the appearance of relative uniform tracer uptake and myocardial perfusion appearing within normal limits. There is end systolic thickening and brightening. The gated Cardiolite study demonstrates myocardial thickening and inward wall motion. The reported LVEF is 72%. Impression: 1. Achieved only 73% of the maximal age-predicted heart rate. Exaggerated blood pressure response to exercise 2. Peak exercise ECG with no ischemic changes 3. Occasional PVCs noted 4. Rest and stress SPECT Cardiolite nuclear imaging demonstrate relative uniform tracer uptake and myocardial perfusion appearing within normal limits. 5. The gated Cardiolite study reports an LVEF of 72%. This note was generated with [employer] software. It may contain incorrect words, spelling, and punctuation that were not noted in checking the note before signing.
[2025-07-22 10:36] LABS: Pro- Brain NATRIURETIC PEPTIDE < 36 pg/mL (<=900)
== END | disposition home or self-care (01) ==
PROVIDERS: PCP Family Medicine; Referring Provider Student in an Organized Health Care Education/Training Program; Visit Provider Student in an Organized Health Care Education/Training Program
DX: R06.09 Other forms of dyspnea (principal); R07.89 Other chest pain
CPT/HCPCS: 36415; 78452; 83880; 93017; 93306; A9500; A4216